=== PATIENT | female | born 1950 | race Two or more races ===

== ENCOUNTER 2024-11-16 18:38 | Emergency (ER) | payer OTHER, SELFPAY ==
[2024-11-16 18:39] VITALS: BMI 22.6
[2024-11-16 18:56] VITALS: BP 163/86; PULSE 88; RESP 18; TEMP 37; O2SAT 99
--- NOTE | 2024-11-16 19:11 | EDRME_ITS ---
Rapid Medical Screening Exam [facility] Arrival date/time: 11/16/24 18:38 73F with history of hypothyroidism, HTN, DM, and hysterectomy last year in [place] due to pelvic organ prolapse presents to ED with 3 days of L-sided ab pain. Patient denies dysuria/hematuria, N/V, and diarrhea. Chief Complaint: Abdominal Pain Vital signs: Vital Signs Temperature 98.6 F 11/16/24 18:56 Pulse Rate 88 11/16/24 18:56 Respiratory Rate 18 11/16/24 18:56 Blood Pressure 163/86 H 11/16/24 18:56 Pulse Oximetry (%) 99 11/16/24 18:56 Oxygen Delivery Method Room Air 11/16/24 18:56
[2024-11-16 19:33] LABS: Collection Type, Urine Clean Catch; Squamous Epithelial Cell,Urine 0 /hpf (0-5); WBC,Urine 0 /hpf (0-5)
[2024-11-16 19:38] LABS: Lactate (Lactic Acid) 1.2 mMol/L (0.4-2.0)
[2024-11-16 19:48] LABS: Basophils % (Auto) 0 % (0-2.5); Eosinophils # (Auto) 0.1 Thou/mm3 (0.0-0.5); Eosinophils % (Auto) 1 % (0-10); Hematocrit 36.5 % (36.0-46.0); Hemoglobin 12.2 g/dL (12.0-16.0); Immature Granulocytes % (Auto) 0 % (0-0); Immature Granulocytes Auto 0.02 Thou/mm3 (0.00-0.00); Lymphocytes # (Auto) 2.8 Thou/mm3 (1.0-4.8); Lymphocytes % (Auto) 33 % (10-50); Mean Corpuscular HGB Conc 33.4 g/dl (31.0-37.0); Mean Corpuscular Hemoglobin 28.3 pg (25.0-35.0); Mean Corpuscular Volume 85 fL (80-100); Monocytes # (Auto) 0.6 Thou/mm3 (0.0-0.8); Monocytes % (Auto) 7 % (0-12); Neutrophils % (Auto) 58 % (37-80); Nucleated Red Blood Cell % 0 /100 WBC (0); Platelet Count 262 Thou/mm3 (140-440); RDW Standard Deviation 41.7 fL (36.4-46.3); Red Blood Count 4.31 Miln/mm3 (4.00-5.20); White Blood Count 8.5 Thou/mm3 (3.6-11.0)
[2024-11-16 19:50] LABS: Bilirubin,Urine Negative (Negative); Blood,Urine Negative (Negative); Clarity,Urine Clear (Clear/Hazy); Color,Urine Colorless (Lt Yel-Yel); Glucose, Urine Negative (Negative); Ketones,Urine Negative (Negative); Leukocyte Esterase,Urine Negative (Negative); Nitrite,Urine Negative (Negative); PH,Urine 6.5 (5.0-7.0); Protein,Urine Negative (Neg - Trace); RBC,Urine < 1 /hpf (0-3); Specific Gravity,Urine 1.008 (1.001-1.035); Urobilinogen,Urine Negative mg/dL (0.0-1.0)
--- NOTE | 2024-11-16 20:05 | EKG_ITS ---
[facility] Test Date: 2024-11-16 Pat Name: ASMITA ROMERO Department: Room: - Gender: Female Hospital Account Manager: : 1950 Requested By: Allan Farley Order Number: [id number] Reading MD: Allan Farley Measurements Intervals [place] Rate: 81 P: 63 NH: 154 QRS: 63 QRSD: 85 T: 78 QT: 352 QTc: 409 Interpretive Statements SINUS RHYTHM Compared to ECG 08/16/2018 11:56:45 No significant changes /store/S0/[id number].pdf
--- NOTE | 2024-11-16 20:06 | XR_ITS ---
Examination: CTA chest, with intravenous contrast. CTA abdomen, with intravenous contrast. CTA pelvis, with intravenous contrast. 2-D sagittal and coronal reconstructions. 3-D reconstructions. Date and time of exam: November 26, 2024 2051 hrs. Indications: Left-sided chest and abdominal pain beginning 4 days ago CTDI vol (mgy) 10.1 DLP (MGycm) 600 Technique: Multiple CTA images, 2.0 mm slice thickness, obtained chest, abdomen, pelvis, with the high-resolution 64 slice scanner. 100 cc Isovue-370 is administered intravenously. Sagittal and coronal 2-D reconstructions are obtained. 3-D reconstructions, angiographic images are obtained. 3-D postprocessing, including vascular maximum intensity projections. Low dose protocols were performed. One or more of the following dose reduction techniques were used; automated exposure control, adjustment of the mA and/or KV according to patient size, use of iterative reconstruction technique. Findings: No thoracic aortic aneurysm dilatation Pulmonary artery segments are not enlarged No pulmonary artery filling defects No paratracheal tracheobronchial or bronchopulmonary adenopathy No pneumonia or pulmonary edema or pleural disease 4 mm pulmonary nodule right midlung 4 mm pulmonary nodule right middle lobe Liver is irregular in contour no focal liver lesions No gallstones Spleen is not enlarged No pancreatic mass No renal or ureteral calculi, no hydronephrosis Aorta normal size No bowel obstruction No pericecal inflammatory change Tiny fat-containing lateral pelvic hernia defect 20 mm, axial image 63 Urinary bladder intact Atrophic uterus No adnexal mass No bladder mass Prominent osteopenia Impression: Small noncalcified pulmonary nodules right lung as above, with this study as baseline recommend 6 month follow-up CT chest without contrast Negative for pulmonary artery emboli No pneumonia or pulmonary edema Primary hepatocellular disease Negative for cholelithiasis No renal or ureteral calculi No CT findings of appendicitis or bowel obstruction Small lateral left pelvic hernia defect
[2024-11-16 20:10] LABS: Alanine Aminotransferase 12 U/L (10-49); Albumin, Serum 4.7 gm/dL (3.4-4.8); Albumin/Globulin Ratio 1.6 (1.2-2.2); Alkaline Phosphatase 78 U/L (46-116); Anion Gap 7 (7-16); Aspartate Amino Transferase 20 U/L (0-34); BUN/Creatinine Ratio 18 Ratio (12-20); Bilirubin,Total 0.3 mg/dL (0.3-1.2); Blood Urea Nitrogen 11 mg/dL (9-23); Calcium 9.6 mg/dL (8.3-10.6); Calcium (Corrected) 9.6 mg/dL (8.5-10.1); Carbon Dioxide 27.7 mMol/L (20.0-31.0); Chloride 106 mMol/L (98-107); Creatinine (Component) 0.6 mg/dL (0.6-1.3); Estimated Creatinine Clearance 64.9 mL/min (>60); Glucose 115 mg/dL (74-106); Lipase 38 U/L (12-53); Osmolality,Calculated 281 (275-295); Potassium 3.8 mMol/L (3.4-5.1); Sodium 141 mMol/L (136-145); Total Protein 7.7 gm/dL (5.7-8.2); eGFR > 60 See Note
[2024-11-16] MEDS: MORPHINE SULF INJ 10 MG/ML VIAL 4 MG IVP (20:20)
[2024-11-16] MEDS: ONDANSETRON INJ 2 MG/ML INJ 2 ML 4 MG IV (20:20)
[2024-11-16] MEDS: SODIUM CHLORIDE 0.9% 1000 ML 1,000 ML 999 ML IV (20:21)
--- NOTE | 2024-11-16 20:28 | PD.EDABDPN ---
ED Abdominal Pain RME/HPI General Chief Complaint: Abdominal Pain Stated complaint: Left abdominal pain to left flank, burining on uri Time seen by provider: 11/16/24 19:33 Arrival date/time: 11/16/24 18:38 RME / HPI RME / HPI narrative: 11/16/24 18:38 73F with history of hypothyroidism, HTN, DM, and hysterectomy last year in [place] due to pelvic organ prolapse presents to ED with 3 days of L-sided ab pain. Patient denies dysuria/hematuria, N/V, and diarrhea. This section includes all my notes and documentations, including HPI, PE, and ED course. Allan Monique MD HPI: 73-year-old female here with several days of pain in the left flank region. Worse with certain movements and positions. No fever or chills. No nausea or vomiting. Eating normally. Had hysterectomy in the past. No urinary symptoms. No other complaints. ROS: All negative except as documented in HPI. Physical Exam: General: Alert and oriented. Appears uncomfortable. Eyes: Conjunctivae and lids clear. ENT: No nasal congestion. Neck: Supple. Heart: RRR. Lungs: No respiratory distress. Good air movement. No rhonchi, wheezing, rales. Chest: Palpation of the left rib cage laterally reproduces her pain. Abdomen: Soft with tenderness in the left flank area. Normal bowel sounds. No distension. No rebound or guarding. Back: No CVA tenderness. Skin: Warm and dry. Neuro: Alert and oriented X 3. I reviewed all diagnostic test results. My interpretation of the EKG is sinus rhythm with no acute ST?T changes. My review of the chest/abdomen/pelvis CT report is no acute findings. Blood tests and urine tests unremarkable. At this point, diagnoses include musculoskeletal chest/abdomen pain. Treatment here included IV fluid and Toradol and morphine and Dilaudid and lidocaine patches. Significant improvement noted. Recommended supportive care. Based on my best medical judgment, made decision no further evaluation or treatment indicated at this time. Patient understands and agrees to the discharge instructions customized and printed, see below. Discharge Instructions from Dr. Monique printed for you: 1. After extensive evaluation, there is no very serious condition. Such as heart attack or blood clots in the lungs or pneumonia or diverticulitis or other serious abdominal condition. 2. Your severe pain is due to tears of small muscle fibers between the ribs and in the abdominal wall. Expect several weeks for complete recovery. 3. Try to resume normal activity. Prolonged inactivity is terrible for your body. 4. Apply ice/heat if helpful. 5. Tylenol with codeine and lidocaine patches as needed. 6. See a private doctor on 11/20/2024 for recheck and further care. To make sure there is no serious intra-abdominal condition, ask for help with more investigation not available here in the ER. Such as EGD or scoping the stomach, colonoscopy or scoping the colon, and referral to see technical services representative. 7. Seek immediate medical care with worsening or with any concerns. Allan Monique MD Related Data Home Medications ?Medication ?Instructions ?Recorded ?Confirmed levothyroxine 75 mcg tablet 75 mcg PO QDAY 04/20/18 01/11/23 lisinopril 10 mg tablet 10 mg PO QDAY 12/12/18 01/11/23 acetaminophen 500 mg tablet 500 mg PO Q8HR PRN Pain 01/11/23 01/11/23 alprazolam 0.5 mg tablet 0.5 mg PO HS 01/11/23 01/11/23 Held on 01/11/23. Instructions: Resume on 01/12/23. atorvastatin 20 mg tablet 20 mg PO DAILY 01/11/23 01/11/23 furosemide 20 mg tablet 20 mg PO DAILY 01/11/23 01/11/23 metformin 500 mg tablet 500 mg PO DAILY 01/11/23 01/11/23 omeprazole 20 mg capsule,delayed 20 mg PO DAILY 01/11/23 01/11/23 release Previous Rx's ?Medication ?Instructions ?Recorded acetaminophen 300 mg-codeine 30 mg 2 tab PO Q8H PRN pain #20 tabs 11/16/24 tablet lidocaine 5 % topical patch 2 patch topical QDAY PRN pain #30 11/16/24 (Lidoderm) ea Allergies Allergy/AdvReac Type Severity Reaction Status Date / Time No Known Allergies Allergy Verified 01/11/23 11:15 Course Quality Measures none Orders Category Date Time Status CT Screening NOW Care 11/16/24 19:10 Completed EKG (ED ONLY) *Do not use* NOW Care 11/16/24 20:05 Completed Insert IV NOW Care 11/16/24 19:[address] angio chest abdomen pelvis Stat Exams 11/16/24 20:06 Completed EKG (ED Only) Stat Exams 11/16/24 20:05 Draft Amylase Stat Lab 11/16/24 20:20 Completed BNP [B-Type Natriuretic Peptide] Stat Lab 11/16/24 20:20 Completed CBC Stat Lab 11/16/24 19:20 Completed CMP [Comprehensive Metabolic Panel] Stat Lab 11/16/24 19:20 Completed D-Dimer Stat Lab 11/16/24 20:20 Completed Lactate (Lactic Acid) Stat Lab 11/16/24 19:20 Completed Lipase Stat Lab 11/16/24 19:20 Completed Magnesium Stat Lab 11/16/24 20:20 Completed TSH [Thyroid Stimulating Hormone] Stat Lab 11/16/24 20:20 Completed Troponin I Stat Lab 11/16/24 20:20 Completed UA [Urinalysis] Stat Lab 11/16/24 19:05 Completed HYDROmorphone INJ [Dilaudid Inj] Med 11/16/24 21:33 Discontinued 0.5 mg IVP X1 ONE Ketorolac Inj [Toradol Inj] Med 11/16/24 21:33 Discontinued 15 mg IVP X1 ONE Lidocaine 5% Patch Med 11/16/24 21:50 Discontinued 2 patch TOP X1 ONE Morphine Inj Med 11/16/24 20:04 Discontinued 4 mg IVP X1 ONE Ondansetron Inj [Zofran Inj] Med 11/16/24 20:04 Discontinued 4 mg IV X1 ONE Sodium Chloride 0.9% 1000 ml [Ns] 1,000 ml Med 11/16/24 20:04 Discontinued IV 999 mls/hr Vital Signs Vital signs: Vital Signs Temperature 98.6 F 11/16/24 18:56 Pulse Rate 88 11/16/24 18:56 Respiratory Rate 18 11/16/24 18:56 Blood Pressure 163/86 H 11/16/24 18:56 Pulse Oximetry (%) 99 11/16/24 18:56 Oxygen Delivery Method Room Air 11/16/24 18:56 Abdominal Pain MDM Patient data External records reviewed:: [facility] previous records Clinical information provided by:: patient and family Social determinants that could affect healthcare access:: none Patient has the following chronic illnesses:: Asthma and HTN and hyperlipidemia How is presenting disease/condition affected by chronic disease/condition?: uneffected by Evaluation data The following diagnostics were reviewed and interpreted by me:: lab results, radiology exam(s) and EKG tracing(s) (My interpretation of the EKG: NSR (81 bpm) with no ST-T changes. Allan Monique MD) Lab and/or radiology exams considered but not ordered:: None Interpretation Summary: Normal diagnostics Medications / Prescriptions Medications or Prescriptions considered but not ordered:: None Medication administrations:: Medication Administration History Discontinued Medications Hydromorphone HCl (Hydromorphone Inj 2 Mg/Ml Vial) 0.5 mg IVP X1 ONE Stop: 11/16/24 21:34 Last Admin: 11/16/24 22:07 Dose: Not Given Documented By: ARETHA Non-Admin Reason: Patient Refused Sodium Chloride (Ns) 1,000 mls @ 999 mls/hr IV .Q1H1M ONE Stop: 11/16/24 21:04 Last Infusion: 11/16/24 22:23 Dose: Infused Documented By: Admin: 11/16/24 20:21 Dose: 999 mls/hr Documented By: LINUS Ketorolac Tromethamine (Ketorolac Inj 30 Mg/Ml Vial) 15 mg IVP X1 ONE Stop: 11/16/24 21:34 Last Admin: 11/16/24 21:37 Dose: 15 mg Documented By: LINUS Lidocaine (Lidocaine 5% 1 Patch) 2 patch TOP X1 ONE Stop: 11/16/24 21:51 Last Admin: 11/16/24 22:10 Dose: 2 patch Documented By: ARETHA Morphine Sulfate (Morphine Sulf Inj 10 Mg/Ml Vial) 4 mg IVP X1 ONE Stop: 11/16/24 20:05 Last Admin: 11/16/24 20:20 Dose: 4 mg Documented By: LINUS Ondansetron HCl (Ondansetron Inj 2 Mg/Ml Inj 2 Ml) 4 mg IV X1 ONE; Protocol Stop: 11/16/24 20:05 Last Admin: 11/16/24 20:20 Dose: 4 mg Documented By: LINUS IV fluid and Zofran and Toradol and morphine and Dilaudid and lidocaine patches Consultations Consultation(s) initiated? (list below): No Diagnosis Differential diagnosis abdominal pain: acute appendicitis, calculus of kidney, constipation, diverticulitis, small bowel obstruction and other (RI, PE, musculoskeletal pain) Most likely diagnosis given after review of the tests above:: Musculoskeletal chest/abdominal pain Admission Indicated Admission indicated?: not indicated Explain why admission is indicated or not indicated:: There is no indication for admission after normal diagnostics. Admission Request Was there a request for admission?: No Disposition Plan Disposition Plan: Discharge Discharge Attestation Discharge Attestation: The patient and all family members were given an opportunity to ask questions and understood the discharge instructions. Discharge instructions specifically effects, indications for sooner follow up or return to the emergency department, and the expected course of current diagnosis. Patient condition: Stable Discharge Plan Plan Patient Disposition: HOME (Self Care) Prescriptions/Referrals Prescriptions/Med Rec: New acetaminophen-codeine 300-30 mg tablet 2 tab PO Q8H MDD 6 PRN (Reason: pain) Qty: 20 0RF lidocaine [Lidoderm] 5 % adhesive patch,medicated 2 patch topical QDAY PRN (Reason: pain) Qty: 30 0RF Rx Instructions: leave on most painful area for up to 12 hrs No Action levothyroxine 75 mcg Tablet 75 mcg PO QDAY lisinopril 10 mg Tablet 10 mg PO QDAY metformin 500 mg tablet 500 mg PO DAILY Patient Comments: TAKE ONE TABLET poi EVERY DAY atorvastatin 20 mg tablet 20 mg PO DAILY acetaminophen 500 mg tablet 500 mg PO Q8HR PRN (Reason: Pain) Patient Comments: TAKE ONE TABLET BY MOUTH EVERY 8-12 HOURS NEEDED NO MORE THAN EIGHT TABLETS PER 24hrs alprazolam 0.5 mg tablet 0.5 mg PO HS omeprazole 20 mg capsule,delayed release(DR/EC) 20 mg PO DAILY furosemide 20 mg tablet 20 mg PO DAILY Referrals: No Primary/Family,Physician [Primary Care Provider] - In 1 week Problem List Clinical Impression: Chest wall pain, Abdominal wall pain Patient/Caregiver Discharge Instructions Discharge Activity: activity as tolerated Education Materials: ED Muscle Strain, Abdomen Additional Instructions: Discharge Instructions from Dr. Monique printed for you: 1. After extensive evaluation, there is no very serious condition. Such as heart attack or blood clots in the lungs or pneumonia or diverticulitis or other serious abdominal condition. 2. Your severe pain is due to tears of small muscle fibers between the ribs and in the abdominal wall. Expect several weeks for complete recovery. 3. Try to resume normal activity. Prolonged inactivity is terrible for your body. 4. Apply ice/heat if helpful. 5. Tylenol with codeine and lidocaine patches as needed. 6. See a private doctor on 11/20/2024 for recheck and further care. To make sure there is no serious intra-abdominal condition, ask for help with more investigation not available here in the ER. Such as EGD or scoping the stomach, colonoscopy or scoping the colon, and referral to see technical services representative. 7. Seek immediate medical care with worsening or with any concerns. Print Language: Persian Stand Alone Forms: Laura Award Info., Patient Portal Info Letter
[2024-11-16 20:44] VITALS: BP 156/85; PULSE 74; RESP 17; TEMP 37.1; O2SAT 100
[2024-11-16 20:48] LABS: B-Type Natriuretic Peptide 36 pg/mL (0-100)
[2024-11-16 20:55] LABS: D-Dimer 342 ng/mL (<600)
[2024-11-16 21:05] LABS: Magnesium 1.9 mg/dL (1.6-2.6); Thyroid Stimulating Hormone 5.37 uIU/mL (0.55-4.78); Troponin I < 0.020 ng/mL (0.0-0.045)
--- NOTE | 2024-11-16 21:32 | PC.NURSE ---
DR. HENNING NOTIFIED OF PAIN 04/22, NO ORDERS RECEIVED AT THIS TIME.
[2024-11-16] MEDS: KETOROLAC INJ 30 MG/ML VIAL 15 MG IVP (21:37)
[2024-11-16] MEDS: LIDOCAINE 5% 1 PATCH 2 PATCH TOP (22:10)
[2024-11-16 22:15] VITALS: BP 142/75; PULSE 78; RESP 17; O2SAT 97
[2024-11-16 22:29] LABS: Amylase 52 U/L (30-118)
== END 2024-11-16 22:25 | disposition home or self-care (01) ==
PROVIDERS: Physician Assistant; Emergency Provider Emergency Medicine
DX: R10.9 Unspecified abdominal pain (principal); R07.89 Other chest pain; I10 Essential (primary) hypertension
CPT/HCPCS: 36415; 71275; 74174; 80053; 81001; 82150; 83605; 83690; 83735; 83880; 84443; 84484; 85025; 85379; 93005; 96361; 96374; 96375; 99285; A4649; J1885; J2270; J2405; J3490; J7030; Q9967

== ENCOUNTER 2024-12-26 14:33 | Observation (INO) | payer OTHER, SELFPAY ==
[2024-12-26 14:36] VITALS: BP 158/84; PULSE 86; RESP 18; TEMP 36.6; O2SAT 98; BMI 24.8
--- NOTE | 2024-12-26 14:50 | PD.EDFALL ---
ED Fall Injury RME/HPI General Chief Complaint: Fall Stated Complaint: FALL Time Seen by Provider: 12/26/24 15:04 Arrival date/time: 12/26/24 14:33 RME / HPI RME / HPI Narrative: DR. PATTERSON MAIN ED EVALUATION: 74 year old female presents to the Emergency Department [facility] with complaint of unwitnessed fall 20 minutes prior to arrival. After the fall, patient has a headache, chest pain, and right knee pain. She states she tripped and fell, there was a hole on the ground. However, now she reports some dizziness. She also reports she has not been taking her blood thinners, unknown time. PMHx: Asthma, hypertension, and metal rods in her posterior neck from previous surgery. Vaginal repair surgery 6-8 months ago. Social Hx: No tobacco, alcohol, or substance use. Related Data Home Medications ?Medication ?Instructions ?Recorded ?Confirmed levothyroxine 75 mcg tablet 75 mcg PO QDAY 04/20/18 01/11/23 lisinopril 10 mg tablet 10 mg PO QDAY 12/12/18 01/11/23 acetaminophen 500 mg tablet 500 mg PO Q8HR PRN Pain 01/11/23 01/11/23 alprazolam 0.5 mg tablet 0.5 mg PO HS 01/11/23 01/11/23 Held on 01/11/23. Instructions: Resume on 01/12/23. atorvastatin 20 mg tablet 20 mg PO DAILY 01/11/23 01/11/23 furosemide 20 mg tablet 20 mg PO DAILY 01/11/23 01/11/23 metformin 500 mg tablet 500 mg PO DAILY 01/11/23 01/11/23 omeprazole 20 mg capsule,delayed 20 mg PO DAILY 01/11/23 01/11/23 release Previous Rx's ?Medication ?Instructions ?Recorded acetaminophen 300 mg-codeine 30 mg 2 tab PO Q8H PRN pain #20 tabs 11/16/24 tablet lidocaine 5 % topical patch 2 patch topical QDAY PRN pain #30 11/16/24 (Lidoderm) ea Allergies Allergy/AdvReac Type Severity Reaction Status Date / Time No Known Allergies Allergy Verified 01/11/23 11:15 Review of Systems Review of Systems Systems Reviewed: All systems reviewed, normal except as documented Past Medical History Past Medical History NEUROLOGIC: Positive Head Trauma (14 YRS OLD FELL ON A ROCK NO ER VISIT, 2007 ER VISIT [facility]OSP FOR 5) CARDIAC: Positive Cardiac Disorders, Hypercholesterolemia and Hypertension RESPIRATORY: Positive Asthma GASTROINTESTINAL: Positive Gastrointestinal Disorders and Gastroesophageal Reflux Disease REPRODUCTIVE: Positive Previous Pregnancies MUSCULOSKELETAL: Positive Musculoskeletal Disorders, Arthritis and Degenerative Disk Disease ENT: Positive Head Trauma (14 YRS OLD FELL ON A ROCK NO ER VISIT, 2007 ER VISIT HOSP FOR 5) ENDOCRINE: Positive Endocrine Disorders, Diabetes Mellitus Type 2 and Hypothyroidism Social History SMOKING STATUS: Never smoker SUBSTANCE USE: does not use ALCOHOL: Never ED Exam Narrative Physical exam: Physical Exam: General: The vital signs were reviewed. The patient is non-toxic, in no apparent distress and appears healthy with a patent airway, no respiratory distress and has no apparent circulatory problems. Head & Scalp: Normocephalic, atraumatic. Face: Appears normal and is without lesions, deformity. Ears: Left external pinna appears normal. Right external pinna appears normal. Eyes: The sclera is anicteric. No obvious photophobia. The Left and Right Orbit/Lid/Conjunctiva appears normal without swelling, discoloration or injection. Nose: The nose is without deformity, discharge or tenderness; Throat: Appears normal. The mucous membranes are pink and moist without exudates, redness or mass seen. The tongue appears normal. Neck: The neck is supple and no apparent mass or adenopathy. Chest: The chest wall is normal in size and symmetry and has no chest wall tenderness or crepitus. The patient displays normal ventilator effort without retractions, accessory muscle use and has adequate air movement bilaterally with no wheezes and no rales. Cardiovascular: Regular rate and rhythm; No murmurs, rubs, or gallops; Gastrointestinal: The abdomen appears normal. No obvious hernias or mass. The abdomen is soft and benign, non-distended, with no pain, no guarding and no rebound tenderness. Bowel sounds are present and normal sounding. No CVA tenderness. Genitourinary: Back/Spine: Patient appears to have tenderness Extremities/Musculoskeletal/lymphatic: The bilateral upper and lower extremities are warm. There is no evidence of arterial insufficiency. There is no evidence of venous insufficiency/edema. The right knee has obvious swelling and hemarthrosis or effusion and patient is unable to flex or bend the knee with tremendous pain on simple palpation anteriorly. Distally the tib-fib ankle and foot grossly appear normal there is no obvious injury. The left leg has some pain and discomfort in the pelvic and hip area but moves the joint fairly well. The patient spontaneously moves bilateral upper and left lower extremities with no pain and no limitation of movement. There is no apparent, injury or trauma. Skin: The skin is warm, dry and intact. No rashes. No petechia. No purpura. No abnormal bruising. The color is appropriate with no cyanosis. Mental status/Psychiatric: Mental status is appropriate for age. The patient has no apparent delusions, visual hallucinations, no apparent audible hallucinations. The patient has no apparent suicidal thoughts/ideation and no apparent homicidal thoughts/ideation. Neurological: The patient is awake, alert, interactive, cordial, cooperative and is oriented to name and situation. The patient follows commands and answers historical question with no impairment. There is no visual disturbance apparent. The pupils are equal and reactive bilaterally with normal eye movements and no diplopia The bilateral upper and lower extremities have normal strength, normal range of motion and normal functioning. The gait, station and balance were not tested due to acuity. Course Quality Measures none Orders Category Date Time Status Bedside Blood Glucose NOW Care 12/26/24 15:[address] Screening NOW Care 12/26/24 15:33 Active EKG (ED ONLY) *Do not use* NOW Care 12/26/24 15:[address] cervical spine wo con Stat Exams 12/26/24 15:[address] chest abdomen pelvis w Stat Exams 12/26/24 15:[address] head/brain wo con Stat Exams 12/26/24 15:04 Completed EKG (ED Only) Stat Exams 12/26/24 15:04 Draft XR chest 1V portable Stat Exams 12/26/24 15:04 Completed XR hip BI w pelvis 3-4V Stat Exams 12/26/24 15:56 Completed XR knee RT 3V Stat Exams 12/26/24 15:32 Completed Alcohol, Blood Medical Stat Lab 12/26/24 15:44 Completed Ammonia Stat Lab 12/26/24 15:44 Completed B-Type Natriuretic Peptide Stat Lab 12/26/24 15:44 Completed Blood Culture (Lab) Stat Lab 12/26/24 15:44 Received CBC Stat Lab 12/26/24 15:44 Completed Comprehensive Metabolic Panel Stat Lab 12/26/24 15:44 Completed Drug Screen,Urine Stat Lab 12/26/24 17:26 Received Lactate (Lactic Acid) Stat Lab 12/26/24 15:44 Completed Procalcitonin Stat Lab 12/26/24 15:44 Completed Prothrombin Time with INR Stat Lab 12/26/24 15:44 Completed Troponin I Stat Lab 12/26/24 15:44 Completed Type and Screen Stat Lab 12/26/24 15:44 Completed Urinalysis Stat Lab 12/26/24 17:26 Received Urinalysis, C/S if Indicated Stat Lab 12/26/24 17:26 Received Venous Blood Gas Stat Lab 12/26/24 15:44 Completed Morphine Inj Med 12/26/24 15:32 Discontinued 5 mg IVP X1 ONE Ondansetron Inj [Zofran Inj] Med 12/26/24 15:32 Discontinued 4 mg IV X1 ONE Vital Signs Vital signs: Vital Signs Temperature 98 F 12/26/24 14:36 Pulse Rate 86 12/26/24 14:36 Respiratory Rate 18 12/26/24 14:36 Blood Pressure 158/84 H 12/26/24 14:36 Pulse Oximetry (%) 98 12/26/24 14:36 Oxygen Delivery Method Room Air 12/26/24 14:36 Fall MDM Narrative MDM Narrative:: I, Ness Alvarado am scribing for and in the presence of Dr. Patterson. The patient tripped and fell on a hole in the ground hitting her head with a hematoma to the left frontal area and complains of pain to the bilateral thorax and anteriorly and laterally complains of truncal pain pelvic pain leg pain including hips and pelvis. Laboratory studies reveal UA and urine drug screen pending at 1810 hrs. CBC with a white count of 8.0 hemoglobin [place] 0.0 PT/INR within normal limits venous blood gas pH is 7.45 pCO2 of 38 sodium 141 potassium 3.5 chloride 109 BUN 9 creatinine 0.5 lactic acid 1.1 transaminases bilirubin are normal ammonia level is normal procalcitonin is negative. Lactic acid is 1.1 sensibly laboratory studies are unremarkable Pelvic and hip x-rays reveal no fracture. X-ray of the right knee reveals a comminuted patellar fracture the knee itself appears to be an fracture there is no dislocation no foreign body seen. CT of the cervical spine came back negative for any fracture. CT of the head came back negative for any intracranial injury or bleed. Chest x-ray came back negative for any infiltrate no consolidation or pneumonia normal heart. CT of the chest abdomen pelvis is still pending at 1808 hrs. and this patient be signed out to Dr. Monique to follow that up. Because of the patella fracture will need a knee immobilizer. Dr. Monique will follow-up on the urinalysis and evaluate this patient for comfort and see if she is safe to go home or need to be admitted for intractable pain. He also follow-up on the CT of the chest abdomen pelvis. Patient data External records reviewed:: EMS form Clinical information provided by:: patient and EMS Social determinants that could affect healthcare access:: none Patient has the following chronic illnesses:: Asthma, hypertension, and metal rods in her posterior neck from previous surgery. Vaginal repair surgery 6-8 months ago. How is presenting disease/condition affected by chronic disease/condition?: uneffected by Evaluation data The following diagnostics were reviewed and interpreted by me:: lab results, radiology exam(s) and EKG tracing(s) (EKG#1: EKG at 1530 hours. Interpreted by me: sinus rhythm, rate 71, no STEMI) Lab and/or radiology exams considered but not ordered:: none Interpretation Summary: Procedure(s): CT head/brain wo con Accession Number(s): [id number] cc: Elijah Patterson MD; Roosevelt Jorgensen MD~ Examination: CT brain head without contrast. 2-D sagittal coronal reconstructions Date and time of exam:December 26, 2024 at 1512 hours INDICATIONS: Loss of consciousness episode today COMPARISON: March 25, 2022 CTDI: vol (mGy):46 DLP: (mGycm):1020 Technique: Multiple CT axial sections of the brain have been obtained, 5 mm slice thickness. Contrast has not been administered. 2-D sagittal, coronal reconstructions have been obtained Low dose protocols were performed. One or more of the following dose reduction techniques were used; automated exposure control, adjustment of the mA and/or KV according to patient size, use of iterative reconstruction technique. Findings: No significant ventricular enlargement. Intra-axial or extra-axial hemorrhage density is not seen. No mass effect or midline shift Basal cisterns are not remarkable. Fourth ventricle is midline. Cranial vault intact. Impression: Negative for acute hemorrhage, mass effect or midline shift Advise clinical correlation follow-up accordingly Dictated By: Roosevelt Jorgensen MD Procedure(s): XR hip BI w pelvis 3-4V Accession Number(s): [id number] cc: Michael Clay; Elijah Patterson MD; Roosevelt Jorgensen MD~ Examination: Bilateral hips, AP pelvis, 5 views Technique: AP, lateral views both hips, AP pelvis, 5 views Exam date and time: December 26, 2024 1602 hrs. Indications: Patient fell today with injury to both hips, bilateral hip pain. Findings: Prominent osteopenia Mild to moderate bilateral hip osteoarthritis No right or left hip fracture or hip dislocation Bones of the pelvis intact Impression: No acute hip or pelvic fracture Dictated By: Roosevelt Jorgensen MD Procedure(s): XR knee RT 3V Accession Number(s): [id number] cc: Michael Clay; Elijah Patterson MD; Roosevelt Jorgensen MD~ Examination: Knee, right , 3 views Technique: Knee AP, lateral, oblique 3 views Date and time of exam: December 26, 2024 1604 hrs. Indications: Patient fell today with into the right knee, right knee pain. Findings: Prominent osteopenia Acute fracture traversing the mid to upper patella anterior to posterior without major offset Extensive blood in the joint space Impression: Acute comminuted patellar fracture Dictated By: Roosevelt Jorgensen MD Procedure(s): XR chest 1V portable Accession Number(s): [id number] cc: Michael Clay; Elijah Patterson MD; Roosevelt Jorgensen MD~ Examination: AP chest single view Technique one AP portable upright chest single view Exam date and time: December 26, 2024 1609 hrs. Comparison 05/16/2024 Indications: Chest pain shortness of breath beginning 2 days ago. Findings: Minimal prominence left ventricle No pneumonia or pulmonary edema Prominent osteopenia Lower cervical plate Impression: No pneumonia or pulmonary edema Dictated By: Roosevelt Jorgensen MD Medications / Prescriptions Medications or Prescriptions considered but not ordered:: none Medication administrations:: Medication Administration History Discontinued Medications Morphine Sulfate (Morphine Sulf Inj 10 Mg/Ml Vial) 5 mg IVP X1 ONE Stop: 12/26/24 15:33 Last Admin: 12/26/24 15:41 Dose: 5 mg Documented By: ER Ondansetron HCl (Ondansetron Inj 2 Mg/Ml Inj 2 Ml) 4 mg IV X1 ONE; Protocol Stop: 12/26/24 15:33 Last Admin: 12/26/24 15:41 Dose: 4 mg Documented By: ER see above Consultations Consultation(s) initiated? (list below): No Diagnosis Fall Differential Diagnosis: concussion without loss of consciousness and other (right knee fracture, head injury) Most likely diagnosis given after review of the tests above:: No official diagnoses at this time, still pending diagnostic tests. Patient signout to the overnight associate provider. Admission Indicated Admission indicated?: not indicated Admission Request Was there a request for admission?: No Disposition Plan Disposition Plan: other (specify) (Patient signout to the overnight associate provider, pending cervical CT, chest/abdomen/pelvis CT, and final disposition.) Discharge Plan Prescriptions/Referrals Prescriptions/Med Rec: No Action levothyroxine 75 mcg Tablet 75 mcg PO QDAY lisinopril 10 mg Tablet 10 mg PO QDAY acetaminophen-codeine 300-30 mg tablet 2 tab PO Q8H MDD 6 PRN (Reason: pain) Qty: 20 0RF lidocaine [Lidoderm] 5 % adhesive patch,medicated 2 patch topical QDAY PRN (Reason: pain) Qty: 30 0RF Rx Instructions: leave on most painful area for up to 12 hrs metformin 500 mg tablet 500 mg PO DAILY Patient Comments: TAKE ONE TABLET poi EVERY DAY atorvastatin 20 mg tablet 20 mg PO DAILY acetaminophen 500 mg tablet 500 mg PO Q8HR PRN (Reason: Pain) Patient Comments: TAKE ONE TABLET BY MOUTH EVERY 8-12 HOURS NEEDED NO MORE THAN EIGHT TABLETS PER 24hrs alprazolam 0.5 mg tablet 0.5 mg PO HS omeprazole 20 mg capsule,delayed release(DR/EC) 20 mg PO DAILY furosemide 20 mg tablet 20 mg PO DAILY Referrals: Michael Louis [Primary Care Provider] - In 1 week Problem List Clinical Impression: Accidental fall, Contusion of head, Chest wall contusion, Bilateral hip pain, Closed fracture of right patella Patient/Caregiver Discharge Instructions Print Language: Bahamian
[2024-12-26 14:59] VITALS: BP 143/101; RESP 18; TEMP 36.6; O2SAT 98
[2024-12-26 15:03] VITALS: PULSE 93; RESP 13; O2SAT 100
--- NOTE | 2024-12-26 15:04 | XR_ITS ---
Examination: CT brain head without contrast. 2-D sagittal coronal reconstructions Date and time of exam:December 26, 2024 at 1512 hours INDICATIONS: Loss of consciousness episode today COMPARISON: March 25, 2022 CTDI: vol (mGy):46 DLP: (mGycm):1020 Technique: Multiple CT axial sections of the brain have been obtained, 5 mm slice thickness. Contrast has not been administered. 2-D sagittal, coronal reconstructions have been obtained Low dose protocols were performed. One or more of the following dose reduction techniques were used; automated exposure control, adjustment of the mA and/or KV according to patient size, use of iterative reconstruction technique. Findings: No significant ventricular enlargement. Intra-axial or extra-axial hemorrhage density is not seen. No mass effect or midline shift Basal cisterns are not remarkable. Fourth ventricle is midline. Cranial vault intact. Impression: Negative for acute hemorrhage, mass effect or midline shift Advise clinical correlation follow-up accordingly
--- NOTE | 2024-12-26 15:04 | EKG_ITS ---
[facility] Test Date: 2024-12-26 Pat Name: ASMITA ROMERO Department: Room: - Gender: Female Pbx Manager: : 1950 Requested By: Elijah Oropeza Order Number: [id number] Reading MD: Elijah Oropeza Measurements Intervals Drain Rate: 71 P: 63 ID: [id number] QRS: 64 QRSD: 95 T: 67 QT: 381 QTc: 414 Interpretive Statements SINUS RHYTHM Compared to ECG 11/16/2024 20:22:59 No significant changes /store/S0/[id number].pdf
--- NOTE | 2024-12-26 15:04 | XR_ITS ---
Examination: AP chest single view Technique one AP portable upright chest single view Exam date and time: December 26, 2024 1609 hrs. Comparison 05/16/2024 Indications: Chest pain shortness of breath beginning 2 days ago. Findings: Minimal prominence left ventricle No pneumonia or pulmonary edema Prominent osteopenia Lower cervical plate Impression: No pneumonia or pulmonary edema
--- NOTE | 2024-12-26 15:32 | XR_ITS ---
Examination: Knee, right , 3 views Technique: Knee AP, lateral, oblique 3 views Date and time of exam: December 26, 2024 1604 hrs. Indications: Patient fell today with into the right knee, right knee pain. Findings: Prominent osteopenia Acute fracture traversing the mid to upper patella anterior to posterior without major offset Extensive blood in the joint space Impression: Acute comminuted patellar fracture
--- NOTE | 2024-12-26 15:32 | XR_ITS ---
Examination: CT chest with intravenous contrast CT abdomen with intravenous contrast CT pelvis with intravenous contrast 2-D coronal and sagittal reconstructions Time of exam: December 26, 2024 at 1735 hrs. Indications: Injury to the chest and abdomen today, chest pain abdomen pain CTDI: vol (mGy) : 03/02/2025 DLP: (mGycm): 360 Technique: Multiple axial images of the chest, abdomen and pelvis with intravenous contrast, 3.0 mm slice thickness. Images obtained post intravenous injection Isovue 370 60 cc. 2-D sagittal and coronal reconstructions. Low dose protocols were performed. One or more of the following dose reduction techniques were used; automated exposure control, adjustment of the mA and/or KV according to patient size, use of iterative reconstruction technique. Findings: Thoracic aorta pulmonary arteries appear intact No hemopericardium, pneumothorax, pulmonary contusion or hemothorax The manubrium, the body the sternum intact. Prominent osteopenia Chronic osteoporotic compression T7 No acute thoracic or lumbar or sacral fracture Suspicious for acute fractures nondisplaced right fifth, sixth, seventh ribs No liver splenic or renal laceration No perinephric hematoma Intact gallbladder Aorta intact No free blood in the abdomen Negative for pneumoperitoneum Urinary bladder intact Hips bones of the pelvis intact Impression: Suspicious for nondisplaced acute fractures right fifth, sixth, seventh ribs anteriorly, the appearance should be clinically correlated Thoracic aorta pulmonary arteries intact No hemopericardium, pneumothorax, pulmonary contusion or hemothorax No abdominal parenchymal laceration Abdominal aorta intact No free blood in the abdomen
--- NOTE | 2024-12-26 15:32 | XR_ITS ---
Examination: CT cervical spine without contrast 2-D sagittal reconstructions 2-D coronal reconstructions 3-D reconstructions. Exam date and time:December 26, 2024 1734 hrs. Indications: Injury to the neck today, neck pain CTDI:vol (mGy) 13.0 DLP: (mGycm) 268 Technique: Multiple 2 mm axial sections of the cervical spine have been obtained. The coronal and sagittal reconstructions have been obtained. 3-D reconstructions have been obtained. Low dose protocols were performed. One or more of the following dose reduction techniques were used; automated exposure control, adjustment of the mA and/or KV according to patient size, use of iterative reconstruction technique. Findings: Axial sections demonstrate intact base of the skull. C1 exhibit satisfactory relationship to the odontoid. No acute cervical vertebral body fracture seen. Alignment posterior spinous processes satisfactory. Cervical fusion C3-C6 with anatomic alignment Impression: No acute cervical fracture.
[2024-12-26] MEDS: MORPHINE SULF INJ 10 MG/ML VIAL 5 MG IVP ×2 (15:41→18:17)
[2024-12-26] MEDS: ONDANSETRON INJ 2 MG/ML INJ 2 ML 4 MG IV ×2 (15:41→21:17)
--- NOTE | 2024-12-26 15:56 | XR_ITS ---
Examination: Bilateral hips, AP pelvis, 5 views Technique: AP, lateral views both hips, AP pelvis, 5 views Exam date and time: December 26, 2024 1602 hrs. Indications: Patient fell today with injury to both hips, bilateral hip pain. Findings: Prominent osteopenia Mild to moderate bilateral hip osteoarthritis No right or left hip fracture or hip dislocation Bones of the pelvis intact Impression: No acute hip or pelvic fracture
[2024-12-26 16:03] LABS: Base Excess, Venous 2 (-3-3); Lactate (Lactic Acid) 1.1 mMol/L (0.4-2.0); O2 Saturation, Venous 78 % (96-97); PCO2, Venous 38 mmHg (36-56); PO2, Venous 38 mmHg (15-58); pH, Venous 7.45 (7.33-7.66)
[2024-12-26 16:04] LABS: Basophils % (Auto) 0 % (0-2.5); Eosinophils # (Auto) 0.1 Thou/mm3 (0.0-0.5); Eosinophils % (Auto) 1 % (0-10); Hematocrit 32.7 % (36.0-46.0); Immature Granulocytes % (Auto) 1 % (0-0); Immature Granulocytes Auto 0.04 Thou/mm3 (0.00-0.00); Lymphocytes # (Auto) 1.5 Thou/mm3 (1.0-4.8); Lymphocytes % (Auto) 19 % (10-50); Mean Corpuscular HGB Conc 33.6 g/dl (31.0-37.0); Mean Corpuscular Hemoglobin 28.4 pg (25.0-35.0); Mean Corpuscular Volume 84 fL (80-100); Monocytes # (Auto) 0.5 Thou/mm3 (0.0-0.8); Monocytes % (Auto) 7 % (0-12); Neutrophils # (Auto) 5.8 Thou/mm3 (1.8-7.7); Neutrophils % (Auto) 73 % (37-80); Nucleated Red Blood Cell % 0 /100 WBC (0); Platelet Count 250 Thou/mm3 (140-440); RDW Standard Deviation 41.7 fL (36.4-46.3); Red Blood Count 3.88 Miln/mm3 (4.00-5.20)
[2024-12-26 16:20] LABS: Prothrombin Time 11.3 Seconds (9.0-12.2)
[2024-12-26 16:21] LABS: Ammonia < 10 uMol/L (11-32)
[2024-12-26 16:28] LABS: B-Type Natriuretic Peptide 42 pg/mL (0-100)
[2024-12-26 16:39] LABS: Alanine Aminotransferase 8 U/L (10-49); Albumin, Serum 4.2 gm/dL (3.4-4.8); Albumin/Globulin Ratio 1.6 (1.2-2.2); Alcohol, Blood Medical < 3.0 mg/dL (0-10.0); Alkaline Phosphatase 80 U/L (46-116); Anion Gap 7 (7-16); Aspartate Amino Transferase 16 U/L (0-34); BUN/Creatinine Ratio 18 Ratio (12-20); Bilirubin,Total 0.6 mg/dL (0.3-1.2); Blood Urea Nitrogen 9 mg/dL (9-23); Calcium 8.9 mg/dL (8.3-10.6); Calcium (Corrected) 8.9 mg/dL (8.5-10.1); Carbon Dioxide 24.8 mMol/L (20.0-31.0); Chloride 109 mMol/L (98-107); Creatinine (Component) 0.5 mg/dL (0.6-1.3); Estimated Creatinine Clearance 87.9 mL/min (>60); Globulin 2.6 gm/dL (2.3-3.5); Glucose 100 mg/dL (74-106); Osmolality,Calculated 279 (275-295); Potassium 3.5 mMol/L (3.4-5.1); Procalcitonin < 0.04 ng/ml (0.0-0.49); Sodium 141 mMol/L (136-145); Total Protein 6.8 gm/dL (5.7-8.2); Troponin I < 0.020 ng/mL (0.0-0.045); eGFR > 60 See Note
[2024-12-26 17:39] LABS: Collection Type, Urine Clean Catch
[2024-12-26 17:56] LABS: Bilirubin,Urine Negative (Negative); Blood,Urine Negative (Negative); Clarity,Urine Clear (Clear/Hazy); Color,Urine Lt-Yellow (Lt Yel-Yel); Culture Indicated,Urine Not Indicated; Glucose, Urine Negative (Negative); Ketones,Urine Negative (Negative); Leukocyte Esterase,Urine Positive (Negative); Nitrite,Urine Negative (Negative); Protein,Urine Negative (Neg - Trace); RBC,Urine 2 /hpf (0-3); Specific Gravity,Urine 1.012 (1.001-1.035); Squamous Epithelial Cell,Urine < 1 /hpf (0-5); Urobilinogen,Urine Negative mg/dL (0.0-1.0); WBC,Urine 4 /hpf (0-5)
[2024-12-26 18:05] LABS: Amphetamine/Methamp Scrn,U Negative (Negative); Barbiturate Screen,Urine Negative (Negative); Benzodiazepines Screen,Urine Positive (Negative); Benzoylecgonine Screen, Ur Negative (Negative); Fentanyl Screen,Urine Negative (Negative); Opiate Screen,Urine Positive (Negative); THC Screen,Urine Negative (Negative)
[2024-12-26 18:07] VITALS: BP 130/64; PULSE 68; RESP 15; TEMP 36.6; O2SAT 99
--- NOTE | 2024-12-26 18:38 | PD.EDADDENDU ---
Emergency Room Addendum Addendum Narrative: Dr Summers was called per Dr. Cavazos's request and he is aware and asked that Dr Vallejo call if he needs anything done concerning chest tubes or management of rib fractures.
--- NOTE | 2024-12-26 18:46 | XR_ITS ---
Examination: Shoulder,left, 3 views Technique: Shoulder AP internal rotation, AP external rotation, Y view shoulder, 3 views Exam date and time :December 26, 2024 1907 hrs. Indications: Patient fell today with injury to the shoulder, shoulder pain Findings: Severe osteopenia No shoulder fracture or dislocation No AC joint separation Impression: No shoulder fracture or dislocation
[2024-12-26 19:18] VITALS: BP 123/63; PULSE 65; RESP 16; TEMP 36.8; O2SAT 99
--- NOTE | 2024-12-26 20:46 | PD.RESHP ---
Documentation for date of: 12/26/24 HPI History of Present Illness Chief complaint: right knee pain History of present illness: The patient is a 74-year-old female with a previous medical history of hypertension, hyperlipidemia, type 2 diabetes, hypothyroidism, asthma, GERD, chronic back and neck pain, right-sided rotator cuff injury status postrepair who was brought in by ambulance after she fell on the street. She was coming back from a doctor's appointment where she got the flu shot and she tripped over the piece of concrete. She hit her face and her body, denies feeling dizzy, losing consciousness before or after the fall. People from nearby offices came and called the ambulance. She was not able to get up on her own. She reports pain in her right leg, right knee, pain in the left eyebrow area, neck, shoulders, chest and abdomen. She denies taking aspirin recently. ED course: Blood pressure 158/84, heart rate 86, respiratory rate 18, saturating well on room air. Imaging showed nondisplaced right acute fifth, sixth, seventh rib fractures and right patellar comminuted fracture. Head and neck CT was negative for acute pathology. CT pelvis and abdomen was negative for hemoperitoneum, pneumothorax, hemothorax, hemopericardium or parenchymal lacerations. Left shoulder x-ray was negative for fracture or dislocation. Pelvis x-ray was negative for hip or pelvic fracture. EKG showed sinus rhythm. Patient is going to be admitted for mechanical fall, rib and patella fracture treatment and management. Social history: Lives with her , independent in her everyday activities. Used to be an inspector floor sub assembly. Denies smoking, drinking, recreational substances. Medications: Med rec is pending Surgical history: right-sided rotator cuff repair, cervical vertebral fusion,2 back surgeries, status post hysterectomy due to vaginal prolapse. Allergies: denies Review of Systems Review of Systems Systems Reviewed: All systems reviewed, normal except as documented Past Medical History Past Medical History CARDIAC: Positive Cardiac Disorders, Hypercholesterolemia and Hypertension GASTROINTESTINAL: Positive Gastrointestinal Disorders and Gastroesophageal Reflux Disease REPRODUCTIVE: Positive Previous Pregnancies MUSCULOSKELETAL: Positive Musculoskeletal Disorders, Arthritis and Degenerative Disk Disease ENDOCRINE: Positive Endocrine Disorders, Diabetes Mellitus Type 2 and Hypothyroidism Social History SMOKING STATUS: Never smoker SUBSTANCE USE: does not use ALCOHOL: Never Exam Vital Signs Temp Pulse Resp BP Pulse Ox O2 Del Method 98.2 F 65 16 123/63 99 Room Air 12/26/24 19:18 12/26/24 19:18 12/26/24 19:18 12/26/24 19:18 12/26/24 19:18 12/26/24 19:18 Narrative Exam Physical Exam General: Awake and in mild distress. Conversational and non-toxic appearing. HEENT: Normocephalic, atraumatic, mucous membranes moist. Small gash lateral to the left eyebrow. Heart: Regular rate and rhythm, no murmurs. Lungs: Clear to auscultation with no wheezing or crackles. Pain during palpation of the right half of the chest. Abdomen: Soft, nondistended, mild diffuse tenderness, positive bowel sounds. ?No guarding or rebound tenderness. Neurologic: Alert and oriented x3, no gross neurological deficit, and range of motion is restricted in the right knee, Able to wiggle toes on the right leg, strength on other extremities 5/5. Right knee is splinted. Bruises on bith knees bilaterally. Extremities: No edema. Range of motion is restricted in the right knee. Right knee is splinted. Bruises on both knees bilaterally. Skin: No rash or ecchymoses. Results: Labs 12/26/24 15:44 12/26/24 15:44 Labs: Short CBC 12/26/24 Range/Units 15:44 WBC 8.0 (3.6-11.0) Thou/mm3 Hgb 11.0 L (12.0-16.0) g/dL Hct 32.7 L (36.0-46.0) % Plt Count 250 (140-440) Thou/mm3 BMP 12/26/24 15:44 Sodium 141 Potassium 3.5 Chloride 109 H Carbon Dioxide 24.8 BUN 9 Creatinine 0.5 L Glucose 100 Calcium 8.9 Cardiac Enzymes 12/26/24 Range/Units 15:44 Troponin I < 0.020 (0.0-0.045) ng/mL Liver Function 12/26/24 Range/Units 15:44 Total Bilirubin 0.6 (0.3-1.2) mg/dL AST 16 (0-34) U/L ALT 8 L (10-49) U/L Alkaline Phosphatase 80 (46-116) U/L Albumin 4.2 (3.4-4.8) gm/dL Urine 12/26/24 Range/Units 17:26 Urine Color Lt-Yellow (Lt Yel-Yel) Urine Clarity Clear (Clear/Hazy) Urine pH 7.0 (5.0-7.0) Ur Specific [place] 1.012 (1.001-1.035) Urine Protein Negative (Neg - Trace) Urine Glucose (UA) Negative (Negative) ABG Interpretation ABG results: 12/26/24 15:44 VBG pH 7.45 VBG pCO2 38 VBG pO2 38 VBG Base Excess 2 Quality Measures Quality Measures VTE prophylaxis Advance care planning discussed with:: patient and child Medications Home Medications and Allergies Home Medications ?Medication ?Instructions ?Recorded ?Confirmed ?Type levothyroxine 75 mcg tablet 75 mcg PO QDAY 04/20/18 01/11/23 History lisinopril 10 mg tablet 10 mg PO QDAY 12/12/18 01/11/23 History acetaminophen 500 mg tablet 500 mg PO Q8HR PRN Pain 01/11/23 01/11/23 History alprazolam 0.5 mg tablet 0.5 mg PO HS 01/11/23 01/11/23 History Held on 01/11/23. Instructions: Resume on 01/12/23. atorvastatin 20 mg tablet 20 mg PO DAILY 01/11/23 01/11/23 History furosemide 20 mg tablet 20 mg PO DAILY 01/11/23 01/11/23 History metformin 500 mg tablet 500 mg PO DAILY 01/11/23 01/11/23 History omeprazole 20 mg capsule,delayed 20 mg PO DAILY 01/11/23 01/11/23 History release Allergies Allergy/AdvReac Type Severity Reaction Status Date / Time No Known Allergies Allergy Verified 01/11/23 11:15 Visit Medications Dextrose (Dextrose 50%-Water Inj 50 Ml Syringe) 25 ml IV Q15MIN PRN PRN Reason: BG 50-70 responsive npo pt Stop: 01/25/25 20:33 Dextrose (Dextrose 50%-Water Inj 50 Ml Syringe) 50 ml IV Q15MIN PRN PRN Reason: BG <50 OR BG <70 & pt unresponsive Stop: 01/25/25 20:33 Glucagon (Glucagon Inj 1 Mg Vial) 1 mg IM Q15MIN PRN PRN Reason: BG <70, and no IV access Insulin Human Lispro (Insulin Lispro (Admelog) 1 Unit/0.01 Ml Unit) 0 unit SC AC [facility]; Protocol Stop: 01/26/25 07:29 Discontinued Medications Lidocaine (Lidocaine 5% 1 Patch) 1 patch TOP X1 ONE Stop: 12/26/24 20:45 Morphine Sulfate (Morphine Sulf Inj 10 Mg/Ml Vial) 5 mg IVP X1 ONE Stop: 12/26/24 15:33 Last Admin: 12/26/24 15:41 Dose: 5 mg Morphine Sulfate (Morphine Sulf Inj 10 Mg/Ml Vial) 5 mg IVP X1 ONE Stop: 12/26/24 18:11 Last Admin: 12/26/24 18:17 Dose: 5 mg Ondansetron HCl (Ondansetron Inj 2 Mg/Ml Inj 2 Ml) 4 mg IV X1 ONE; Protocol Stop: 12/26/24 15:33 Last Admin: 12/26/24 15:41 Dose: 4 mg Assessment & Plan Plan The patient is a 74-year-old female with a previous medical history of hypertension, hyperlipidemia, type 2 diabetes, hypothyroidism, asthma, GERD, chronic back and neck pain, right-sided rotator cuff injury status postrepair who was brought in by ambulance after she fell on the street. #Mechanical fall #Right patellar fracture #Right V, , VII rib fractures Patient tripped over the piece of concrete on the street. Imaging was positive for right patellar fracture and right acute fifth, sixth, seventh rib fractures. In the ED orthopedic surgeon Dr. Vallejo was consulted. He also requested general surgery consult regarding the rib fractures management. Imaging was negative for hemoperitoneum, pneumothorax, hemothorax, hemopericardium or parenchymal lacerations. Plan: - pain conrol as needed - physical therapy eval - incentive spirometry - will hold off the general surgery consult for now due to the patient being stable without signs of pneumothorax, hemothorax, acute bleeding, hemoperitoneum. - orthopedic surgery consult #Hypertension Plan: - will hold off home BP medications due to normal blood pressure #Type 2 diabetes Plan: - sliding scale insulin with blood sugar checks - hypoglycemia protocol #Hypothyroidism Plan: - resume her home levothyroxine #Hyperlipidemia Plan: - med rec is pending #History of asthma Plan: - duonebs inhalations as needed #History of GERD Plan: - pantoprazole 40 mg qday Health maintenance: FEN: cardiac, carbohydrate consistent, NPO after midnight 12/26 DVT prophylaxis: SCDs GI prophylaxis: pantoprazole Dispo: med surg CODE STATUS: Full code Plan of care discussed with attending Dr. Horn. Ann Sunshine MD, PGY 1. Attending Provider Attestation/Addendum I have examined the patient, reviewed labs and imaging findings, discussed the case with the resident(s), and reviewed entered orders. I agree with the plan of care as outlined in this note, with these additional summaries/recommendations: Patient is a 74-year-old female with a medical history of primary hypertension, hyperlipidemia, previous cervical spine surgery, chronic back pain, constipation, vertigo, and ?Hypothyroidism who presented to [facility] emergency department on 12/26/2024 with chief complaint of severe pain after a ground-level fall. In the emergency department right knee x-ray revealed acute comminuted patellar fracture with what appears to be extensive blood in the joint space. CT scan of chest/abdomen/pelvis significant for nondisplaced acute fractures of right 5th, 6th, and 7th rib anteriorly. Orthopedics was consulted and recommends admission. Start pain management and will titrate as needed. Physical therapy consultation after orthopedics evaluation. Patient denies taking any anticoagulation except for baby aspirin but has not been compliant or taken this medicine recently. She denies cardiac history. She does endorse a history of vertigo and was prescribed meclizine previously by PCP. She denies dizziness at rest. We will continue to monitor for now and CT head on admission was negative for acute hemorrhage, mass effect or midline shift. Additional imaging studies did not reveal any further fractures and patient only endorses pain in her right knee and right ribs during my evaluation. We will continue home medications pending medication reconciliation. Hold anticoagulation for now. NPO after midnight incase surgical intervention is required tomorrow. Patient and daughter updated at bedside. All questions answered to satisfaction. Please see residents note for additional management and recommendations. Dr. Justina MD
[2024-12-26] MEDS: LIDOCAINE 5% 1 PATCH TOP (21:15)
[2024-12-26] MEDS: HEPARIN SOD INJ 5000 UNIT/ML VIAL SC (21:16)
[2024-12-26] MEDS: HYDROmorphone INJ 2 MG/ML VIAL 1 MG IVP (21:17)
[2024-12-26 21:23] VITALS: BP 149/74; PULSE 62; RESP 15; TEMP 37.2; O2SAT 99
[2024-12-27] VITALS (9 sets, daily range): BP systolic 124–137; BP diastolic 65–75; PULSE 60–71; RESP 16–99; TEMP 36.1–37.3; O2SAT 96–99; BMI 23.9
[2024-12-27] MEDS: oxyCODONE/APAP 5/325 TABLET 1 TAB PO (04:49)
--- NOTE | 2024-12-27 04:50 | PC.NURSE ---
pt is npo, complaining of pain, okay to give percocet with a sip of water per Dr. Nicolas.
[2024-12-27 06:25] LABS: Basophils % (Auto) 0 % (0-2.5); Eosinophils % (Auto) 0 % (0-10); Hematocrit 33.9 % (36.0-46.0); Hemoglobin 11.2 g/dL (12.0-16.0); Immature Granulocytes % (Auto) 0 % (0-0); Immature Granulocytes Auto 0.01 Thou/mm3 (0.00-0.00); Lymphocytes # (Auto) 1.3 Thou/mm3 (1.0-4.8); Lymphocytes % (Auto) 16 % (10-50); Mean Corpuscular Hemoglobin 28.6 pg (25.0-35.0); Mean Corpuscular Volume 87 fL (80-100); Monocytes # (Auto) 0.4 Thou/mm3 (0.0-0.8); Monocytes % (Auto) 5 % (0-12); Neutrophils # (Auto) 6.2 Thou/mm3 (1.8-7.7); Neutrophils % (Auto) 79 % (37-80); Nucleated Red Blood Cell % 0 /100 WBC (0); Platelet Count 244 Thou/mm3 (140-440); RDW Standard Deviation 42.6 fL (36.4-46.3); Red Blood Count 3.92 Miln/mm3 (4.00-5.20); White Blood Count 7.9 Thou/mm3 (3.6-11.0)
[2024-12-27 06:40] LABS: Alanine Aminotransferase 10 U/L (10-49); Albumin, Serum 4.6 gm/dL (3.4-4.8); Albumin/Globulin Ratio 1.8 (1.2-2.2); Alkaline Phosphatase 85 U/L (46-116); Anion Gap 10 (7-16); Aspartate Amino Transferase 18 U/L (0-34); BUN/Creatinine Ratio 20 Ratio (12-20); Bilirubin,Total 0.6 mg/dL (0.3-1.2); Blood Urea Nitrogen 12 mg/dL (9-23); Calcium 9.4 mg/dL (8.3-10.6); Calcium (Corrected) 9.4 mg/dL (8.5-10.1); Chloride 105 mMol/L (98-107); Creatinine (Component) 0.6 mg/dL (0.6-1.3); Globulin 2.6 gm/dL (2.3-3.5); Glucose 123 mg/dL (74-106); Magnesium 1.9 mg/dL (1.6-2.6); Osmolality,Calculated 283 (275-295); Phosphorous 3.7 mg/dL (2.4-5.1); Potassium 3.8 mMol/L (3.4-5.1); Sodium 142 mMol/L (136-145); Total Protein 7.2 gm/dL (5.7-8.2); eGFR > 60 See Note
[2024-12-27] MEDS: ONDANSETRON INJ 2 MG/ML INJ 2 ML 4 MG IV ×3 (08:00→21:31)
[2024-12-27] MEDS: PANTOPRAZOLE 40 MG TABLET PO (08:13)
[2024-12-27] MEDS: POTASSIUM CHLORIDE 20 mEq TABCR PO (08:14)
[2024-12-27] MEDS: SODIUM CHLORIDE 0.9% 1000 ML 1,000 ML 80 ML IV (08:49)
[2024-12-27] MEDS: MORPHINE SULF INJ 10 MG/ML VIAL 2 MG IVP ×2 (08:59→14:38)
--- NOTE | 2024-12-27 12:06 | PC.NURSE ---
Blood sugar is 77. Patient is NPO, notified Md, will follow up.--Yann
--- NOTE | 2024-12-27 13:50 | ESPR_ITS ---
<Statement entered by Melissa Hyman MD - 01/02/25 13:47> I reviewed above note and agree with findings and plans. I have also personally examined the patient with medicine team and went over assessment and plan with medical team including computer science intern and resident physician. Documentation for date of: 12/27/24 Senior resident attestation: Patient is 74-year-old female, sustained a mechanical ground-level fall,Was admitted to medical floor due to transverse fracture right patella, also complaining of pain left shoulder and head. Head CT was negative for acute hemorrhage, mass effect or midline shift, cervical spine CT showed no acute cervical fracture, CT chest abdomen pelvis showed nondisplaced acute fractures for fifth 6 seventh ribs anteriorly, knee x-ray showed acute comminuted patella fracture, the patient was admitted to medical floor. Dr. Obando orthopedic surgeon was consulted, who followed the patient, recommended knee brace and acute rehab placement. Also recommended Eliquis for DVT prophylaxis as patient will have a brace, may be immobile, high risk of DVT and PE. Patient evaluated and examined at the bedside, plan of care discussed with rest of the team including my attending physician, except as noted. Quresh PGY2 Subjective Subjective Interval history: Overnight admission. Patient was admitted secondary to mechanical fall with rib fracture of the right fifith, sixth, seventh ribs and acute comminuted patellar fracture. Patient complaining of pain, added Mountainside and Morphine. Pending Dr. Vallejo recommendations for comminuted patellar fracture. Shoulder x-ray showed no fracture or dislocation. Exam Vital Signs Temp Pulse Resp BP Pulse Ox O2 Del Method 98.5 F 61 18 126/75 96 Room Air 12/27/24 12:00 12/27/24 12:00 12/27/24 12:00 12/27/24 12:00 12/27/24 12:12/27/24 12:00 Narrative Exam General Appearance: Alert & Oriented X3, female who is lying in bed in discomfort. Rib tenderness and knee tenderness. HEENT: Skull symmetrical and atraumatic. Conjunctivae pin and moist. Pupils equal, round, reactive to light and accommodation (PERRL). External ear without lesion or discharge. Straight, nares patient, mucosa pink, no discharge. No thyroid nodule appreciated. No cervical lymphadenopathy. Cardio: Normal Rate and Rhythm with S1 and S2 heart sounds. No murmurs or extra heart sounds auscultated. No bruits on carotid auscultation. No peripheral edema or cyanosis. Lungs: Symmetric with good expansion. Chest and back non-tender. Breath sounds vesicular without crackles, wheezing or rhonchi Abdomen: Non-tender, Non-distended, Normal Reactive Bowel Sounds Neuro: Alert, cooperative, oriented to person, place, and time. Speech clear. CN grossly intact. Upper motor strength 5/5 and Lower motor strength 5/5. Sensation intact. Objective Labs 12/28/24 05:01 12/28/24 05:01 Labs: Laboratory Results - last 24 hr 12/26/24 12/26/24 12/27/24 15:44 17:26 05:00 WBC 8.0 7.9 RBC 3.88 L 3.92 L Hgb 11.0 L 11.2 L Hct 32.7 L 33.9 L MCV 84 87 MCH 28.4 28.6 MCHC 33.6 33.0 RDW Std Deviation 41.7 42.6 Plt Count 250 244 Neut % (Auto) 73 79 Lymph % (Auto) 19 16 [place] % (Auto) 7 5 Eos % (Auto) 1 0 Baso % (Auto) 0 0 Neut # (Auto) 5.8 6.2 Lymph # (Auto) 1.5 1.3 [place] # (Auto) 0.5 0.4 Eos # (Auto) 0.1 0.0 Baso # (Auto) 0.0 0.0 Immature Gran # (Auto) 0.04 H 0.01 H Absolute Nucleated RBC 0.00 0.00 Immature Gran % 1 H 0 Nucleated RBC % 0 0 PT 11.3 INR 1.0 VBG pH 7.45 VBG pCO2 38 VBG pO2 38 VBG O2 Sat (Thor) 78 L VBG Base Excess 2 Sodium 141 142 Potassium 3.5 3.8 Chloride 109 H 105 Carbon Dioxide 24.8 27.0 Anion Gap 7 10 BUN 9 12 Creatinine 0.5 L 0.6 Estim Creat Clear Calc 87.9 67.0 eGFR > 60 > 60 BUN/Creatinine Ratio 18 20 Glucose 100 123 H Calculated Osmolality 279 283 Lactic Acid 1.1 Calcium 8.9 9.4 Corrected Calcium 8.9 9.4 Phosphorus 3.7 Magnesium 1.9 Total Bilirubin 0.6 0.6 AST 16 18 ALT 8 L 10 Alkaline Phosphatase 80 85 Ammonia < 10 L Troponin I < 0.020 B-Natriuretic Peptide 42 Total Protein 6.8 7.2 Albumin 4.2 4.6 Globulin 2.6 2.6 Albumin/Globulin Ratio 1.6 1.8 Procalcitonin < 0.04 Ur Collection Type Clean Catch Urine Color Lt-Yellow Urine Clarity Clear Urine pH 7.0 Ur Specific [place] 1.012 Urine Protein Negative Urine Glucose (UA) Negative Urine Ketones Negative Urine Blood Negative Urine Nitrite Negative Urine Bilirubin Negative Urine Urobilinogen (Auto) Negative Ur Leukocyte Esterase Positive Urine RBC 2 Urine WBC 4 Ur Squamous Epith Cells < 1 Urine Bacteria None Ur Culture Indicated? Not Indicated Urine Opiates Screen Positive A Urine Fentanyl Screen Negative Ur Barbiturates Screen Negative U Amphetamin/Meth Scrn Negative U Benzodiazepines Scrn Positive A U Cocaine Metab Screen Negative U Marijuana (THC) Screen Negative Ethyl Alcohol < 3.0 Blood Type A Positive Antibody Screen NEGATIVE Blood Bank Wristband ID Yes ABG Interpretation ABG results: 12/26/24 15:44 VBG pH 7.45 VBG pCO2 38 VBG pO2 38 VBG Base Excess 2 Quality Measures Quality Measures VTE prophylaxis Advance care planning discussed with:: patient Assessment & Plan Assessment Current Active Medications: Generic Name Dose Route Start Last Admin Trade Name Freq PRN Reason Stop Dose Admin Acetaminophen 650 mg 12/26/24 20:28 Acetaminophen 325 Mg Tablet PO 01/25/25 20:27 Q6H PRN Fever >100.3 or pain 1-3 Hydrocodone Bitart/Acetaminophen 1 tab 12/27/24 08:34 Hydrocodone/Apap 5/325 Tablet PO 01/01/25 08:33 Q4HR PRN PAIN SCALE 4-6 (Moderate Albuterol/Ipratropium 3 ml 12/26/24 21:34 Albuterol/Ipratropium (Duoneb) Rt Brooke 3 Ml Nebu INH 01/25/25 21:33 Q2HR PRN SHORTNESS OF BREATH OR WHEEZE Dextrose 25 ml 12/26/24 20:34 Dextrose 50%-Water Inj 50 Ml Syringe IV 01/25/25 20:33 Q15MIN PRN BG 50-70 responsive npo pt Dextrose 50 ml 12/26/24 20:34 Dextrose 50%-Water Inj 50 Ml Syringe IV 01/25/25 20:33 Q15MIN PRN BG <50 OR BG <70 & pt unresponsive Glucagon 1 mg 12/26/24 20:34 Glucagon Inj 1 Mg Vial IM Q15MIN PRN BG <70, and no IV access Sodium Chloride 1,000 mls @ 80 mls/hr 12/27/24 08:34 12/27/24 08:49 Ns IV 12/27/24 21:03 80 mls/hr .[id number] ONE Administration Insulin Human Lispro 0 unit 12/27/24 07:30 12/27/24 12:00 Insulin Lispro (Admelog) 1 Unit/0.01 Ml Unit SC 01/26/25 07:29 Not Given AC ANILA Protocol Levothyroxine Sodium 75 mcg 12/27/24 06:00 12/27/24 06:05 Levothyroxine Sodium 25 Mcg Tablet PO 01/26/25 05:59 Not Given ACBR ANILA Morphine Sulfate 2 mg 12/27/24 08:35 12/27/24 08:59 Morphine Sulf Inj 10 Mg/Ml Vial IVP 01/01/25 08:34 2 mg Q4HR PRN Administration PAIN SCALE 7-10 (Severe Ondansetron HCl 4 mg 12/26/24 20:28 12/26/24 21:17 Ondansetron Inj 2 Mg/Ml Inj 2 Ml IV 01/25/25 20:27 4 mg Q6H PRN Administration NAUSEA OR VOMITING Protocol Pantoprazole Sodium 40 mg 12/27/24 09:00 12/27/24 08:13 Pantoprazole 40 Mg Tablet PO 01/26/25 08:59 40 mg QDAY ANILA Administration Sennosides 1 tab 12/26/24 20:28 Senna Tablet PO 01/25/25 20:27 QDAY PRN constipation Protocol Plan The patient is a 74-year-old female with a previous medical history of hypertension, hyperlipidemia, type 2 diabetes, hypothyroidism, asthma, GERD, chronic back who was admitted on 12/26/2024 for acute comminuted patellar fracture and nondisplaced fractures of 5, 6, and 7 ribs. #Mechanical fall #Right patellar fracture #Right V, , VII rib fractures Patient exereinced a mechanical fall secondary to tripping on a raised piece of concrete. Denied seizures or sycnope. Denied Dizziness. Images showed right patellar frracture and 5, 6, and 7 ribs nondisplaced fractures. In the ED orthopedic surgeon Dr. Vallejo was consulted. He also requested general surgery consult regarding the rib fractures management. Imaging was negative for hemoperitoneum, pneumothorax, hemothorax, hemopericardium or parenchymal lacerations. Plan: - Pain management Tylenol, Mountainside 5, and Morpnine 1 mg IV Q4HRs - physical therapy eval - incentive spirometry - Consulted Ortho, Dr. Vallejo, appreciate recommendations. Requested information be faxed to office #Hypertension Plan: - will hold off home BP medications due to normal blood pressure -Hold Losartan 50 mg once daily as BP is within normal limits #Type 2 diabetes Plan: - sliding scale insulin with blood sugar checks - hypoglycemia protocol #Hypothyroidism Plan: - resume her home levothyroxine #Hyperlipidemia Plan: -Atorvastatin 20 mg HS #History of asthma Plan: - duonebs inhalations as needed #History of GERD Plan: - pantoprazole 40 mg qday Health maintenance: Disp: pending Ortho recs, Dr. Vallejo, appreciate recommendations. FEN: cardiac, carbohydrate consistent, NPO After midnight DVT prophylaxis: SCDs GI prophylaxis: pantoprazole Dispo: med surg CODE STATUS: Full code - The patient's plan was discussed with attending Dr. Hyman and senior residents Dr. Farooq Soria MD PGY1 Internal Medicine
--- NOTE | 2024-12-27 15:38 | PC.SS ---
Patient is Irish speaking only. Patient admitted for ground level fall. Patient's family at bedside requested to speak regarding discharge planning needs. Patient is alert/oriented. Patient resides with . Prior to hospitalization patient was independent with ADL's. Patient is pending a consult with Ortho-Dr. Vallejo. Daughter, Gali, states she prefers patient to d/c to SNF. They prefer [facility] since they live in [place]. Daughter is the main careprovider and the alt medical decision maker. Gali Adames, @ [phone] She states if she is unavailable in an emergency, we could contact her brother, Simon Love @ [phone]. SS will send inquiry through [employer] to all local SNF's. PASRR will be completed. Patient may need gurney transport upon discharge alt medical decison maker: Gali Granados,
--- NOTE | 2024-12-27 19:50 | PD.ORTHCON ---
HPI Consult details Reason for consultation narrative: Pain right knee, hips, left shoulder, right and left chest wall History of present illness: Patient is a very nice 74-year-old who was walking tripped and fell face forward striking her left parietal scalp both wrists left shoulder right knee Past Medical History Past Medical History NEUROLOGIC: Positive Head Trauma; Negative Neurological Disorders or Seizures CARDIAC: Positive Cardiac Disorders, Hypercholesterolemia and Hypertension; Negative Congestive Heart Failure RESPIRATORY: Positive Asthma; Negative Chronic Obstructive Pulmonary Disease (COPD) GASTROINTESTINAL: Positive Gastrointestinal Disorders and Gastroesophageal Reflux Disease GENITOURINARY: Negative Genitourinary Disorders or Renal Disease REPRODUCTIVE: Positive Previous Pregnancies MUSCULOSKELETAL: Positive Musculoskeletal Disorders, Arthritis and Degenerative Disk Disease ENT: Positive Head Trauma ENDOCRINE: Positive Endocrine Disorders, Diabetes Mellitus Type 2 and Hypothyroidism; Negative Diabetes Mellitus Type 1 HEMATOLOGIC: Negative Blood Disorders or Sickle Cell Disease OTHER HISTORY: Negative Hospitalization, Autoimmune Disease, Down Syndrome, Developmental Delay, Shingles, Falls, Blood Transfusions, Anesthesia Reactions or Cancer Family History FAMILY HISTORY: Negative Family Cardiac Disorders Social History SMOKING STATUS: Never smoker SUBSTANCE USE: does not use Meds Home Medications and Allergies Home Medications ?Medication ?Instructions ?Recorded ?Confirmed ?Type levothyroxine 75 mcg tablet 75 mcg PO QDAY 04/20/18 12/27/24 History acetaminophen 500 mg tablet 500 mg PO Q8HR PRN Pain 01/11/23 12/27/24 History alprazolam 0.5 mg tablet 0.5 mg PO HS 01/11/23 12/27/24 History Held on 01/11/23. Instructions: Resume on 01/12/23. atorvastatin 20 mg tablet 20 mg PO DAILY 01/11/23 12/27/24 History furosemide 20 mg tablet 20 mg PO DAILY 01/11/23 12/27/24 History metformin 500 mg tablet 500 mg PO DAILY 01/11/23 12/27/24 History omeprazole 20 mg capsule,delayed 20 mg PO DAILY 01/11/23 12/27/24 History release losartan 50 mg tablet 50 mg PO DAILY 12/27/24 12/27/24 History Allergies Allergy/AdvReac Type Severity Reaction Status Date / Time No Known Allergies Allergy Verified 01/11/23 11:15 Exam Vital Signs Temp Pulse Resp BP Pulse Ox O2 Del Method 99.0 F 60 18 129/73 96 Room Air 12/27/24 16:00 12/27/24 16:00 12/27/24 16:00 12/27/24 16:00 12/27/24 16:00 12/27/24 16:00 Narrative Exam Patient is a very alert young appearing 74-year-old who fell. She tripped. There was no loss of consciousness. No history of strokelike symptoms. No seizure activity. She is complaining of some pain in the left frontal parietal scalp with slight swelling being noted. She is able to turn head [id number] lift her head off the pillow. Minimal pain neck previous neck surgery. Again the fall really did not exacerbate her underlying neck pain. She has no pain other than she normally has. The fall did not exacerbate her neck pain She has excellent range of motion shoulders elbows wrist hands and fingers she is able to lift both arms. She does have pain in her left shoulder girdle. She does have some weakness with belly press Hornblower test. No increased pain right shoulder. She did have right shoulder surgery for rotator cuff repair and then manipulation for adhesive capsulitis approximately 12 years ago. She had some underlying persistent right shoulder pain and left shoulder pain since then. She is complaining of pain in both wrist. Minimal swelling noted she has good palmar flexion dorsiflexion of both wrist unable to flex fingers distal palmar crease . Palpation of cervical thoracic and lumbar spine do not increase the discomfort in any of these 3 regions of the axial skeleton. She does have some chest wall tenderness to palpation right and left chest wall. She is not tachypneic. Does not have any significant pain with deep breathing. No abdominal discomfort. Able to move both hips. Pain swelling right knee. Active flexion extension of feet toes noted. Results - Ortho Labs 12/27/24 05:00 12/27/24 05:00 Labs: Short CBC 12/27/24 Range/Units 05:00 WBC 7.9 (3.6-11.0) Thou/mm3 Hgb 11.2 L (12.0-16.0) g/dL Hct 33.9 L (36.0-46.0) % Plt Count 244 (140-440) Thou/mm3 BMP 12/27/24 05:00 Sodium 142 Potassium 3.8 Chloride 105 Carbon Dioxide 27.0 BUN 12 Creatinine 0.6 Glucose 123 H Calcium 9.4 Liver Function 12/27/24 Range/Units 05:00 Total Bilirubin 0.6 (0.3-1.2) mg/dL AST 18 (0-34) U/L ALT 10 (10-49) U/L Alkaline Phosphatase 85 (46-116) U/L Albumin 4.6 (3.4-4.8) gm/dL Hemoglobin 11.2 ABG Interpretation ABG results: 12/26/24 15:44 VBG pH 7.45 VBG pCO2 38 VBG pO2 38 VBG Base Excess 2 Assessment & Plan Additional Assessment Additional comments: 1. Left shoulder contusion. I went through all the x-rays with the family and she does have some acromioclavicular arthritis and early glenohumeral arthritis. No fracture of the acromion or humeral neck noted. Does have significant osteopenia osteoporosis. 2. We went through the x-rays of her cervical spine and she does have a plate. X-ray of the right knee was noted and she does have pre-existing Tri compartment arthritis right knee. She has a transverse fracture right patella and perfect position Plan Organ to get her up with physical therapy. She can weight-bear to tolerance on right lower extremity. I like to get her in a fracture brace so we can dial in 0 to 20 degrees of range of motion. She is going to need to go home on Eliis. She may need snf admission. If she goes home she is going to need a hospital bed, trapezius, bedside commode, walker. We need to do serial x-rays of her patella once a week for the next 3 weeks.
[2024-12-27] MEDS: MORPHINE SULF INJ 10 MG/ML VIAL IVP (20:10)
[2024-12-27] MEDS: APIXABAN 2.5 MG TABLET PO (20:17)
[2024-12-28] VITALS (11 sets, daily range): BP systolic 129–150; BP diastolic 62–77; PULSE 57–79; RESP 14–99; TEMP 36.3–37.2; O2SAT 96–100; BMI 11.0
[2024-12-28] MEDS: ALBUTEROL/IPRATROPIUM (Duoneb) RT SOL 3 ML NEBU INH (00:05)
[2024-12-28] MEDS: HYDROmorphone INJ 2 MG/ML VIAL 0.5 MG IVP ×2 (01:05→09:11)
[2024-12-28] MEDS: LEVOTHYROXINE SODIUM 25 MCG TABLET 75 MCG PO (05:32)
[2024-12-28 06:02] LABS: Basophils % (Auto) 0 % (0-2.5); Eosinophils % (Auto) 1 % (0-10); Hematocrit 35.1 % (36.0-46.0); Hemoglobin 11.3 g/dL (12.0-16.0); Immature Granulocytes % (Auto) 0 % (0-0); Immature Granulocytes Auto 0.02 Thou/mm3 (0.00-0.00); Lymphocytes # (Auto) 1.3 Thou/mm3 (1.0-4.8); Lymphocytes % (Auto) 17 % (10-50); Mean Corpuscular HGB Conc 32.2 g/dl (31.0-37.0); Mean Corpuscular Hemoglobin 27.7 pg (25.0-35.0); Mean Corpuscular Volume 86 fL (80-100); Monocytes # (Auto) 0.5 Thou/mm3 (0.0-0.8); Monocytes % (Auto) 7 % (0-12); Neutrophils # (Auto) 5.7 Thou/mm3 (1.8-7.7); Neutrophils % (Auto) 75 % (37-80); Nucleated Red Blood Cell % 0 /100 WBC (0); Platelet Count 253 Thou/mm3 (140-440); RDW Standard Deviation 42.5 fL (36.4-46.3); Red Blood Count 4.08 Miln/mm3 (4.00-5.20); White Blood Count 7.6 Thou/mm3 (3.6-11.0)
[2024-12-28 06:31] LABS: Alanine Aminotransferase 10 U/L (10-49); Albumin, Serum 4.4 gm/dL (3.4-4.8); Albumin/Globulin Ratio 1.7 (1.2-2.2); Alkaline Phosphatase 75 U/L (46-116); Anion Gap 11 (7-16); Aspartate Amino Transferase 18 U/L (0-34); BUN/Creatinine Ratio 22 Ratio (12-20); Bilirubin,Total 0.6 mg/dL (0.3-1.2); Blood Urea Nitrogen 11 mg/dL (9-23); Calcium 8.7 mg/dL (8.3-10.6); Calcium (Corrected) 8.7 mg/dL (8.5-10.1); Carbon Dioxide 24.8 mMol/L (20.0-31.0); Chloride 106 mMol/L (98-107); Creatinine (Component) 0.5 mg/dL (0.6-1.3); Estimated Creatinine Clearance 80.4 mL/min (>60); Globulin 2.6 gm/dL (2.3-3.5); Glucose 99 mg/dL (74-106); Magnesium 1.8 mg/dL (1.6-2.6); Osmolality,Calculated 282 (275-295); Phosphorous 3.5 mg/dL (2.4-5.1); Potassium 3.6 mMol/L (3.4-5.1); Sodium 142 mMol/L (136-145); eGFR > 60 See Note
[2024-12-28] MEDS: PANTOPRAZOLE 40 MG TABLET PO (09:02)
[2024-12-28] MEDS: APIXABAN 2.5 MG TABLET PO ×2 (09:02→21:05)
[2024-12-28] MEDS: ONDANSETRON INJ 2 MG/ML INJ 2 ML 4 MG IV (09:04)
[2024-12-28] MEDS: LOSARTAN POTASSIUM 25 MG TABLET PO (09:09)
--- NOTE | 2024-12-28 09:17 | PC.SS ---
PASSR LVL1 completed and downloaded.
--- NOTE | 2024-12-28 09:18 | PC.SS ---
[facility] referral submitted for SNF, pending responses. SS reached out to Vivian with [facility] to inform her of pts #1 choice being their facility.
--- NOTE | 2024-12-28 10:39 | PC.SS ---
Rounding: No SX for pt, 1-2 more days of monitoring and DC plan to SNF. (Pending choice)
--- NOTE | 2024-12-28 11:43 | PC.SS ---
SS met with pt and her dtr Elizabeth and over phone was dtr Gali in regards t DC plan. DC plan to was confirmed. SS explained pt daylin require auth due to insurance, once PT notes are in SS will update Vivian at for auth.
[2024-12-28] MEDS: LIDOCAINE 5% 1 PATCH TOP (11:54)
--- NOTE | 2024-12-28 12:50 | ESPR_ITS ---
<Statement entered by Melissa Hyman MD - 01/08/25 13:16> I reviewed above note and agree with findings and plans. I have also personally examined the patient with medicine team and went over assessment and plan with medical team including internet marketing strategist and resident physician. Documentation for date of: 12/28/24 Senior resident attestation: Patient is 74-year-old female, sustained a mechanical ground-level fall,Was admitted to medical floor due to transverse fracture right patella, also complaining of pain left shoulder and head. Head CT was negative for acute hemorrhage, mass effect or midline shift, cervical spine CT showed no acute cervical fracture, CT chest abdomen pelvis showed nondisplaced acute fractures for fifth 6 seventh ribs anteriorly, knee x-ray showed acute comminuted patella fracture, the patient was admitted to medical floor. Dr. Obando orthopedic surgeon was consulted, who followed the patient, recommended knee brace and acute rehab placement. Also recommended Eliquis for DVT prophylaxis as patient will have a brace, may be immobile, high risk of DVT and PE. Pt is pending insurance auth, anticipate discharge tomorrow. Patient evaluated and examined at the bedside, plan of care discussed with rest of the team including my attending physician, except as noted. Quresh PGY2 Subjective Subjective Interval history: No overnight events for patient. Patient followed up with PT and recommending SNF placement. Patient stated mild tenderness with movement, switched to oral pain management. Eliquis 2.5 mg BID starting at 9:00 PM. Exam Vital Signs Temp Pulse Resp BP Pulse Ox O2 Del Method 98.8 F 62 18 129/62 98 Room Air 12/28/24 11:34 12/28/24 11:34 12/28/24 11:34 12/28/24 11:34 12/28/24 11:34 12/28/24 11:34 Narrative Exam General Appearance: Alert & Oriented X3, well-nourished female who is lying in bed in no acute distress HEENT: Skull symmetrical and atraumatic. Conjunctivae pin and moist. Pupils equal, round, reactive to light and accommodation (PERRL). External ear without lesion or discharge. Straight, nares patient, mucosa pink, no discharge. No thyroid nodule appreciated. No cervical lymphadenopathy. Cardio: Normal Rate and Rhythm with S1 and S2 heart sounds. No murmurs or extra heart sounds auscultated. No bruits on carotid auscultation. No peripheral edema or cyanosis. Lungs: Symmetric with good expansion. Chest and back non-tender. Breath sounds vesicular without crackles, wheezing or rhonchi Abdomen: Non-tender, Non-distended, Normal Reactive Bowel Sounds Neuro: Alert, cooperative, oriented to person, place, and time. Speech clear. CN grossly intact. Upper motor strength 5/5 and Lower motor strength 5/5. Sensation intact. Objective Labs 12/28/24 05:01 12/28/24 05:01 Labs: Laboratory Results - last 24 hr 12/28/24 05:01 WBC 7.6 RBC 4.08 Hgb 11.3 L Hct 35.1 L MCV 86 MCH 27.7 MCHC 32.2 RDW Std Deviation 42.5 Plt Count 253 Neut % (Auto) 75 Lymph % (Auto) 17 [place] % (Auto) 7 Eos % (Auto) 1 Baso % (Auto) 0 Neut # (Auto) 5.7 Lymph # (Auto) 1.3 [place] # (Auto) 0.5 Eos # (Auto) 0.0 Baso # (Auto) 0.0 Immature Gran # (Auto) 0.02 H Absolute Nucleated RBC 0.00 Immature Gran % 0 Nucleated RBC % 0 Sodium 142 Potassium 3.6 Chloride 106 Carbon Dioxide 24.8 Anion Gap 11 BUN 11 Creatinine 0.5 L Estim Creat Clear Calc 80.4 eGFR > 60 BUN/Creatinine Ratio 22 H Glucose 99 Calculated Osmolality 282 Calcium 8.7 Corrected Calcium 8.7 Phosphorus 3.5 Magnesium 1.8 Total Bilirubin 0.6 AST 18 ALT 10 Alkaline Phosphatase 75 Total Protein 7.0 Albumin 4.4 Globulin 2.6 Albumin/Globulin Ratio 1.7 ABG Interpretation ABG results: 12/26/24 15:44 VBG pH 7.45 VBG pCO2 38 VBG pO2 38 VBG Base Excess 2 Quality Measures Quality Measures VTE prophylaxis Advance care planning discussed with:: patient Assessment & Plan Assessment Current Active Medications: Generic Name Dose Route Start Last Admin Trade Name Freq PRN Reason Stop Dose Admin Acetaminophen 650 mg 12/26/24 20:28 Acetaminophen 325 Mg Tablet PO 01/25/25 20:27 Q6H PRN Fever >100.3 or pain 1-3 Hydrocodone Bitart/Acetaminophen 1 tab 12/27/24 08:34 Hydrocodone/Apap 5/325 Tablet PO 01/01/25 08:33 Q4HR PRN PAIN SCALE 4-6 (Moderate Albuterol/Ipratropium 3 ml 12/26/24 21:34 12/28/24 00:05 Albuterol/Ipratropium (Duoneb) Rt Brooke 3 Ml Nebu INH 01/25/25 21:33 3 ml Q2HR PRN Administration SHORTNESS OF BREATH OR WHEEZE Apixaban 2.5 mg 12/27/24 21:00 12/28/24 09:02 Apixaban 2.5 Mg Tablet PO 01/26/25 20:59 2.5 mg BID ANILA Administration Atorvastatin Calcium 20 mg 12/27/24 21:00 12/27/24 20:28 Atorvastatin Calcium 20 Mg Tablet PO 01/26/25 20:59 Not Given HS ANILA Dextrose 25 ml 12/26/24 20:34 Dextrose 50%-Water Inj 50 Ml Syringe IV 01/25/25 20:33 Q15MIN PRN BG 50-70 responsive npo pt Dextrose 50 ml 12/26/24 20:34 Dextrose 50%-Water Inj 50 Ml Syringe IV 01/25/25 20:33 Q15MIN PRN BG <50 OR BG <70 & pt unresponsive Glucagon 1 mg 12/26/24 20:34 Glucagon Inj 1 Mg Vial IM Q15MIN PRN BG <70, and no IV access Hydromorphone HCl 0.5 mg 12/28/24 08:19 12/28/24 09:11 Hydromorphone Inj 2 Mg/Ml Vial IVP 01/02/25 08:18 0.5 mg Q4HR PRN Administration PAIN SCALE 7-10 (Severe Insulin Human Lispro 0 unit 12/27/24 07:30 12/28/24 11:58 Insulin Lispro (Admelog) 1 Unit/0.01 Ml Unit SC 01/26/25 07:29 Not Given AC [facility] Protocol Levothyroxine Sodium 75 mcg 12/27/24 06:00 12/28/24 05:32 Levothyroxine Sodium 25 Mcg Tablet PO 01/26/25 05:59 75 mcg ACBR ANILA Administration Losartan Potassium 25 mg 12/28/24 09:00 04/17/25 09:09 Losartan Potassium 25 Mg Tablet PO 01/27/25 08:59 25 mg QDAY ANILA Administration Ondansetron HCl 4 mg 12/26/24 20:28 12/28/24 09:04 Ondansetron Inj 2 Mg/Ml Inj 2 Ml IV 01/25/25 20:27 4 mg Q6H PRN Administration NAUSEA OR VOMITING Protocol Pantoprazole Sodium 40 mg 12/27/24 09:00 12/28/24 09:02 Pantoprazole 40 Mg Tablet PO 01/26/25 08:59 40 mg QDAY ANILA Administration Sennosides 1 tab 12/26/24 20:28 Senna Tablet PO 01/25/25 20:27 QDAY PRN constipation Protocol Plan The patient is a 74-year-old female with a previous medical history of hypertension, hyperlipidemia, type 2 diabetes, hypothyroidism, asthma, GERD, chronic back who was admitted on 12/26/2024 for acute comminuted patellar fracture and nondisplaced fractures of 5, 6, and 7 ribs. #Mechanical fall #Right patellar fracture #Right V, , VII rib fractures Patient exereinced a mechanical fall secondary to tripping on a raised piece of concrete. Denied seizures or sycnope. Denied Dizziness. Images showed right patellar frracture and 5, 6, and 7 ribs nondisplaced fractures. Plan: - Pain management Tylenol and Percocet -Eliquis 2.5 mg BID for DVT prophylaxis -PT-->SNF - incentive spirometry #Hypertension Home dose of Losartan at 50 mg once daily currently holding. Plan: -Start at Losartan 25 mg once daily #Type 2 diabetes Plan: - sliding scale insulin - hypoglycemia protocol #Hypothyroidism Plan: - resumed her home levothyroxine #Hyperlipidemia Plan: -Atorvastatin 20 mg HS #History of asthma Plan: - duonebs inhalations as needed #History of GERD Plan: - pantoprazole 40 mg qday Health maintenance: Disp: pending snf FEN: cardiac, carbohydrate consistent, NPO After midnight DVT prophylaxis: Eliquis 2.5 mg BID GI prophylaxis: pantoprazole Dispo: med surg CODE STATUS: Full code - The patient's plan was discussed with attending Dr. Hyman and senior residents Dr. Farooq Soria MD PGY1 Internal Medicine
--- NOTE | 2024-12-28 14:36 | PC.SS ---
SS submitted PT notes via [facility] to Vivian ashby
--- NOTE | 2024-12-28 15:23 | PC.SS ---
Addendum entered by Tricia Ramos 12/28/24 16:04: Auth obtained for , per Team DC tomorrow pending Dr. Vallejo [facility] Original Note: SS sent PT notes to Vivian at , she stated she will start auth
--- NOTE | 2024-12-28 18:00 | PC.NURSE ---
Educated patient on importance of using IS states she used it by herself. Requested demonstration of how to properly use IS, daughter at bedside helped with encouragement.
[2024-12-28] MEDS: oxyCODONE/APAP 5/325 TABLET 1 TAB PO (19:06)
[2024-12-28] MEDS: METOCLOPRAMIDE INJ 5 MG/ML VIAL 2 ML IVP (19:07)
--- NOTE | 2024-12-28 20:13 | CONPN_ITS ---
Subjective Subjective Brief History: Patient is a very nice 74-year-old who was walking tripped and fell face forward striking her left parietal scalp both wrists left shoulder right knee Narrative: Patient was up with physical therapy. She was unable to do any significant walking either forward or backwards. She was able to stand for several minutes. She does have pain with movement right knee. She is in knee immobilizer Exam Vital Signs Temp Pulse Resp BP Pulse Ox O2 Del Method 98.9 F 79 18 150/72 H 99 Room Air 12/28/24 16:00 12/28/24 18:04 12/28/24 18:04 12/28/24 16:00 12/28/24 18:04 12/28/24 16:00 Pressure 150/72 Narrative Exam Physical examination shows that she has active flexion extension of right ankle right foot. Slightly increased amount of swelling right knee. Her knee immobilizer is slid towards her ankle. I showed her daughter how to loosen it and then pull it up. I told her that we want to send her to the patella in the brace where there is no foam. Teri Nicole is excepted her for tomorrow Objective - Ortho Labs 12/28/24 05:01 12/28/24 05:01 Labs: Laboratory Results - last 24 hr 12/28/24 05:01 WBC 7.6 RBC 4.08 Hgb 11.3 L Hct 35.1 L MCV 86 MCH 27.7 MCHC 32.2 RDW Std Deviation 42.5 Plt Count 253 Neut % (Auto) 75 Lymph % (Auto) 17 [place] % (Auto) 7 Eos % (Auto) 1 Baso % (Auto) 0 Neut # (Auto) 5.7 Lymph # (Auto) 1.3 [place] # (Auto) 0.5 Eos # (Auto) 0.0 Baso # (Auto) 0.0 Immature Gran # (Auto) 0.02 H Absolute Nucleated RBC 0.00 Immature Gran % 0 Nucleated RBC % 0 Sodium 142 Potassium 3.6 Chloride 106 Carbon Dioxide 24.8 Anion Gap 11 BUN 11 Creatinine 0.5 L Estim Creat Clear Calc 80.4 eGFR > 60 BUN/Creatinine Ratio 22 H Glucose 99 Calculated Osmolality 282 Calcium 8.7 Corrected Calcium 8.7 Phosphorus 3.5 Magnesium 1.8 Total Bilirubin 0.6 AST 18 ALT 10 Alkaline Phosphatase 75 Total Protein 7.0 Albumin 4.4 Globulin 2.6 Albumin/Globulin Ratio 1.7 Hemoglobin 11.3. Creatinine 0.5 ABG Interpretation ABG results: 12/26/24 15:44 VBG pH 7.45 VBG pCO2 38 VBG pO2 38 VBG Base Excess 2 Assessment & Plan Assessment Additional comments: Patient is having difficulty moving her bowels. She has not moved her bowels since being admitted. Will get Dr. Lopez who his her certified scrum master to have a look and see if we can develop a good bowel program. Plan Most likely will be ready for discharge tomorrow afternoon. Dr. Lopez consult Documentation for date of: 12/28/24
[2024-12-28] MEDS: SENNA TABLET 1 TAB PO (21:07)
[2024-12-29] VITALS (7 sets, daily range): BP systolic 118–148; BP diastolic 59–80; PULSE 64–80; RESP 16–18; TEMP 36.2–36.8; O2SAT 92–97
[2024-12-29 05:34] LABS: Basophils % (Auto) 0 % (0-2.5); Eosinophils # (Auto) 0.2 Thou/mm3 (0.0-0.5); Eosinophils % (Auto) 3 % (0-10); Hematocrit 35.2 % (36.0-46.0); Hemoglobin 11.7 g/dL (12.0-16.0); Immature Granulocytes % (Auto) 1 % (0-0); Immature Granulocytes Auto 0.03 Thou/mm3 (0.00-0.00); Lymphocytes % (Auto) 35 % (10-50); Mean Corpuscular HGB Conc 33.2 g/dl (31.0-37.0); Mean Corpuscular Hemoglobin 28.7 pg (25.0-35.0); Mean Corpuscular Volume 87 fL (80-100); Monocytes # (Auto) 0.6 Thou/mm3 (0.0-0.8); Monocytes % (Auto) 11 % (0-12); Neutrophils # (Auto) 2.9 Thou/mm3 (1.8-7.7); Neutrophils % (Auto) 50 % (37-80); Nucleated Red Blood Cell % 0 /100 WBC (0); Platelet Count 227 Thou/mm3 (140-440); RDW Standard Deviation 42.6 fL (36.4-46.3); Red Blood Count 4.07 Miln/mm3 (4.00-5.20); White Blood Count 5.7 Thou/mm3 (3.6-11.0)
[2024-12-29] MEDS: oxyCODONE/APAP 5/325 TABLET 1 TAB PO ×2 (06:03→16:55)
[2024-12-29] MEDS: LEVOTHYROXINE SODIUM 25 MCG TABLET 75 MCG PO (06:03)
[2024-12-29 06:19] LABS: Alanine Aminotransferase 12 U/L (10-49); Albumin, Serum 4.2 gm/dL (3.4-4.8); Albumin/Globulin Ratio 1.5 (1.2-2.2); Alkaline Phosphatase 77 U/L (46-116); Anion Gap 10 (7-16); Aspartate Amino Transferase 24 U/L (0-34); BUN/Creatinine Ratio 15 Ratio (12-20); Bilirubin,Total 0.7 mg/dL (0.3-1.2); Blood Urea Nitrogen 9 mg/dL (9-23); Calcium 9.2 mg/dL (8.3-10.6); Calcium (Corrected) 9.2 mg/dL (8.5-10.1); Carbon Dioxide 24.1 mMol/L (20.0-31.0); Chloride 106 mMol/L (98-107); Creatinine (Component) 0.6 mg/dL (0.6-1.3); Globulin 2.8 gm/dL (2.3-3.5); Glucose 92 mg/dL (74-106); Osmolality,Calculated 278 (275-295); Phosphorous 3.7 mg/dL (2.4-5.1); Potassium 3.7 mMol/L (3.4-5.1); Sodium 140 mMol/L (136-145); eGFR > 60 See Note
[2024-12-29] MEDS: LACTULOSE SYRUP 20 GM/30 ML UDC PO ×2 (08:38→12:16)
[2024-12-29] MEDS: POTASSIUM CHLORIDE 10% 20 MEQ/15 ML UDC 40 MEQ GT (08:39)
[2024-12-29] MEDS: APIXABAN 2.5 MG TABLET PO (08:39)
[2024-12-29] MEDS: PANTOPRAZOLE 40 MG TABLET PO (08:39)
[2024-12-29] MEDS: LIDOCAINE 5% 1 PATCH TOP (14:06)
--- NOTE | 2024-12-29 14:21 | ESDS_ITS ---
<Statement entered by Melissa Hyman MD - 01/08/25 13:18> I reviewed above note and agree with findings and plans. I have also personally examined the patient with medicine team and went over assessment and plan with medical team including international trade analyst and resident physician. Planned Discharge Date 12/29/24 DS: Providers Provider Date of admission: 12/26/24 20:28 Primary care physician: Michael Clay Admitting Provider: Hollis Horn MD Attending Provider on Admission: Melissa Hyman MD Consults: 12/26/24 20:33 Consult to Orthopedic Routine Comment: right patellar fracture Consulting Provider: Rahul Vallejo Referral Physical Therapy Routine Comment: Physician Instructions: 12/27/24 19:58 Referral Physical Therapy Urgent Comment: Physician Instructions: Instructions: Fracture right patella. She can weight-bear to tolerance on right lower extremity. Make sure she is safe with a walker. Show her how to do upper extremity strengthening exercises and strengthening exercises left lower extremity. 12/28/24 20:16 Consult to Gastroenterology Urgent Comment: Consulting Provider: Tung Lopez Instructions: Patient is a very nice patient of yours. She has not moved her bowels. Please help us with bowel program. She will be going to half-way facility and it would be nice for a good bowel program there thank you so much Attending Provider on DC: Nori Soria MD Discharging Provider: Nori Soria MD DS: Diagnosis Problem List Completed Was Problem List Reviewed/Reconciled?: Yes Hospital Course Hospital Course Hospital course: Summary: The patient is a 74-year-old female with a previous medical history of hypertension, hyperlipidemia, type 2 diabetes, hypothyroidism, asthma, GERD, chronic back who was admitted on 12/26/2024 for acute comminuted patellar fracture and nondisplaced fractures of 5, 6, and 7 ribs. ER course: Blood pressure 158/84, heart rate 86, respiratory rate 18, saturating well on room air. Imaging showed nondisplaced right acute fifth, sixth, seventh rib fractures and right patellar comminuted fracture. Head and neck CT was negative for acute pathology. CT pelvis and abdomen was negative for hemoperitoneum, pneumothorax, hemothorax, hemopericardium or parenchymal lacerations. Left shoulder x-ray was negative for fracture or dislocation. Pelvis x-ray was negative for hip or pelvic fracture. EKG showed sinus rhythm. Hospital Course: During hospitilization, orthopedics consulted, which recommend medical management and no surgical intervention planed for comminuted patellar fracture. Fracture brace recommended for patient with serial x-rays for patella once a week for the next 3 weeks. DVT prophylaxis recommended by ortho, Eliquis 2.5 mg recommended for a total of 12 days. Please follow up with Dr. Vallejo Physical therapy recommended short SNF course. Given mechanical fall, CT head negative. Shoulder x-ray was negative for any acute fractures. #Mechanical fall #Right patellar fracture #Right V, , VII rib fractures #Hypertension #Diabetes Mellitus Type 2, non-insulin dependent #Hypothyroidism #Hyperlipidemia #History of asthma #History of GERD Instructions: -Please continue Eliquis for 10 more days for DVT prophylaxis, please follow up with orthopedics for further recommendations -your new medication of Eliquis, increases your risk of bleeding, please seek immediate medical attention -Please stop Losartan 50 mg and start Losartan 25 mg once daily -Please do serial x-rays of patella once a week for the next 3 weeks. -Please follow up with your primary care provider within one week of discharge -Please follow up with Dr. Vallejo if orthopedics. -If your symptoms worsen,please seek immediate medical attention and return to your nearest emergency room -If you do not have a primary care provider, you may follow up at the [facility] at [address] [place] [address] [address], [place] [address], Stable for SNF - The patient's plan was discussed with attending Dr. Hyman and senior residents Dr. Farooq Soria MD PGY1 Internal Medicine Patient is 74-year-old female, sustained a mechanical ground-level fall,Was admitted to medical floor due to transverse fracture right patella, also complaining of pain left shoulder and head. Head CT was negative for acute hemorrhage, mass effect or midline shift, cervical spine CT showed no acute cervical fracture, CT chest abdomen pelvis showed nondisplaced acute fractures for fifth 6 seventh ribs anteriorly, knee x-ray showed acute comminuted patella fracture, the patient was admitted to medical floor. Dr. Obando orthopedic surgeon was consulted, who followed the patient, recommended knee brace and acute rehab placement. Also recommended Eliquis for DVT prophylaxis as patient will have a brace, may be immobile, high risk of DVT and PE. Followup with orthopedic surgery within one week, Weekly Knee joint xrays and anticoagulation as prescribed by Orthopedic surgeon. Patient evaluated and examined at the bedside, plan of care discussed with rest of the team including my attending physician, except as noted. Quresh PGY2 Time Spent with Patient Time attestation: Total time spent providing and/or coordinating discharge services: at least 30 minutes of care and coordination Time spent: Greater than 30 minutes Exam Vital Signs Temp Pulse Resp BP Pulse Ox O2 Del Method 97.2 F 67 16 148/73 H 97 Room Air 12/29/24 12:12/29/24 12:12/29/24 12:12/29/24 12:12/29/24 12:12/29/24 12:00 Narrative Exam General Appearance: Alert & Oriented X3, well-nourished female who is lying in bed in mild discomfort, secondary to right knee patella fracture HEENT: Skull symmetrical and atraumatic. Conjunctivae pin and moist. Pupils equal, round, reactive to light and accommodation (PERRL). External ear without lesion or discharge. Straight, nares patient, mucosa pink, no discharge. No thyroid nodule appreciated. No cervical lymphadenopathy. Cardio: Normal Rate and Rhythm with S1 and S2 heart sounds. No murmurs or extra heart sounds auscultated. No bruits on carotid auscultation. No peripheral edema or cyanosis. Lungs: Symmetric with good expansion. Chest and back non-tender. Breath sounds vesicular without crackles, wheezing or rhonchi Abdomen: Non-tender, Non-distended, Normal Reactive Bowel Sounds Neuro: Alert, cooperative, oriented to person, place, and time. Speech clear. CN grossly intact. Upper motor strength 5/5 and Lower motor strength 5/5. Sensation intact. Discharge Plan Problem List Was Problem List Reviewed/Reconciled?: Yes Plan Patient Disposition: Xfer Skilled Nsg Fac (SNF) Care Plan Goals: Instructions: -Please continue Eliquis for 10 more days for DVT prophylaxis, please follow up with orthopedics for further recommendations -your new medication of Eliquis, increases your risk of bleeding, please seek immediate medical attention -Please stop Losartan 50 mg and start Losartan 25 mg once daily -Please do serial x-rays of patella once a week for the next 3 weeks. -Please follow up with your primary care provider within one week of discharge -Please follow up with Dr. Vallejo if orthopedics. -If your symptoms worsen,please seek immediate medical attention and return to your nearest emergency room -If you do not have a primary care provider, you may follow up at the [facility] at [address] [place] [address] [address], [place] [address], Prescriptions/Referrals Prescriptions/Med Rec: New losartan 25 mg Tablet 25 mg PO QDAY 30 Days Qty: 30 0RF hydrocodone-acetaminophen 5-325 mg Tablet 1 tab PO Q4HR MDD 3 max PRN (Reason: Pain Scale 7-10 (Severe) Qty: 5 0RF Eliquis 2.5 mg tablet 2.5 mg PO BID 10 Days Qty: 20 0RF Continued levothyroxine 75 mcg Tablet 75 mcg PO QDAY lidocaine [Lidoderm] 5 % adhesive patch,medicated 2 patch topical QDAY PRN (Reason: pain) Qty: 30 0RF Rx Instructions: leave on most painful area for up to 12 hrs metformin 500 mg tablet 500 mg PO DAILY Patient Comments: TAKE ONE TABLET poi EVERY DAY atorvastatin 20 mg tablet 20 mg PO DAILY acetaminophen 500 mg tablet 500 mg PO Q8HR PRN (Reason: Pain) Patient Comments: TAKE ONE TABLET BY MOUTH EVERY 8-12 HOURS NEEDED NO MORE THAN EIGHT TABLETS PER 24hrs alprazolam 0.5 mg tablet 0.5 mg PO HS omeprazole 20 mg capsule,delayed release(DR/EC) 20 mg PO DAILY furosemide 20 mg tablet 20 mg PO DAILY Discontinued losartan 50 mg tablet 50 mg PO DAILY Referrals: Michael Louis [Primary Care Provider] - Rahul Vallejo MD [Physician] - Patient/Caregiver Discharge Instructions Other Discharge Activity Instructions:: Orthopedic: 1. Weight-bear to tolerance on right lower extremity. Should be either in her knee immobilizer or her fracture brace. The fracture brace can be set at 0 to 20 degrees of flexion while in bed. When she is up walking please lock the brace in full extension. We want to get her up at least twice a day to walk. She needs x-ray on 321 2 view right knee, 328 2 view right knee. I need to see those x-rays in my office. It would be great if somebody could drop off the disc. Maybe her family could do so. If she has marked increase in pain please call my office [phone]. My cell phone is 3 01/19/1761. I would recommend the Eliquis 2.5 mg twice daily for 3 weeks. [employer]: 1. Carga de peso en la extremidad inferior derecha seg?n tolerancia. Debe usar el inmovilizador de rodilla o la f?isabella para fracturas. La f?isabella para fracturas se puede ajustar en flexi?n de 0 a 20 grados mientras est? en cama. Cuando est? de pie caminando, bloquee la f?isabella en extensi?n completa. Queremos que se levante al menos dos veces al d?a para que camine. Necesita radiograf?as de la rodilla derecha (vista 321, 2) y de la rodilla derecha (vista 328, 2). Necesito jasiel esas radiograf?as en mi consultorio. Ser?a genial si alguien pudiera dejar el disco. Quiz?s randle walker podr?a hacerlo. Si presenta un aumento marcado del dolor, llame a mi consultorio al [phone]. Mi tel?fono celular es [phone]. Recomiendo Eliquis 2.5 mg dos veces al d?a sita 3 semanas. Education Materials: Preventing Falls How to ... Print Language: French Stand Alone Forms: Laura Award Info., Patient Portal Info Letter Discharge Order Discharge Orders: Discharge (Routine); Ordered 12/29/24 Ordered By: Nori Soria Quality Discharge Quality Measures VTE prophylaxis
--- NOTE | 2024-12-29 15:29 | PC.NURSE ---
report given to Kenia LAGUNA at [facility].
--- NOTE | 2024-12-29 17:07 | PC.NURSE ---
Upon discharge pt reported pain 8 out of 10 scale, percoset given.
== END 2024-12-29 17:00 | disposition skilled nursing facility (03) ==
LOC: SERX 18:46 → SERHOLD 21:46 → S3SX 12-27 05:41 → SERHOLD 12-28 11:58 → S3SX 12-28 13:21 → SERHOLD 12-29 07:14
PROVIDERS: Admitting Provider Student in an Organized Health Care Education/Training Program; Emergency Provider Emergency Medicine; PCP Physician Assistant; Visit Provider Internal Medicine
DX: S82.041A Displaced comminuted fracture of right patella, initial encounter for closed fracture (principal); S22.41XA Multiple fractures of ribs, right side, initial encounter for closed fracture; I10 Essential (primary) hypertension; E78.5 Hyperlipidemia, unspecified; E11.9 Type 2 diabetes mellitus without complications; E03.9 Hypothyroidism, unspecified; K21.9 Gastro-esophageal reflux disease without esophagitis; G89.29 Other chronic pain; M54.2 Cervicalgia; M54.9 Dorsalgia, unspecified; J45.909 Unspecified asthma, uncomplicated; W01.198A Fall on same level from slipping, tripping and stumbling with subsequent striking against other object, initial encounter; Y92.410 Unspecified street and highway as the place of occurrence of the external cause; S00.93XA Contusion of unspecified part of head, initial encounter; S40.012A Contusion of left shoulder, initial encounter; E78.00 Pure hypercholesterolemia, unspecified; M17.11 Unilateral primary osteoarthritis, right knee; M81.0 Age-related osteoporosis without current pathological fracture; W01.0XXA Fall on same level from slipping, tripping and stumbling without subsequent striking against object, initial encounter; W18.39XA Other fall on same level, initial encounter; W22.09XA Striking against other stationary object, initial encounter; Z79.01 Long term (current) use of anticoagulants; Z90.710 Acquired absence of both cervix and uterus; Z98.890 Other specified postprocedural states; Z01.810 Encounter for preprocedural cardiovascular examination
CPT/HCPCS: 36415; 70450; 71045; 71260; 72125; 73030; 73522; 73562; 74177; 80053; 80307; 80320; 81001; 82140; 82803; 83605; 83735; 83880; 84100; 84145; 84484; 85025; 85610; 86850; 86900; 86901; 87040; 93005; 94640; 96372; 96374; 96375; 97161; 99285; A4649; A9270; G0378; J1643; J2270; J2405; J2765; J3490; J7030; Q9967; G0480

== ENCOUNTER → 2025-01-23 | Outpatient (CLI) | payer MEDICARE, SELFPAY ==
--- NOTE | 2025-01-23 | XR_ITS ---
Examination: Right knee 2 views TECHNIQUE: AP lateral right knee 2 views INDICATIONS: Acute comminuted patellar fractures December 26, 2024 FINDINGS: Significant partial healing comminuted patellar fractures with satisfactory alignment No new fractures IMPRESSION: Significant partial healing comminuted patellar fractures with satisfactory alignment
== END | disposition home or self-care (01) ==
PROVIDERS: PCP Physician Assistant; Referring Provider Orthopaedic Surgery; Visit Provider Orthopaedic Surgery
DX: S82.044A Nondisplaced comminuted fracture of right patella, initial encounter for closed fracture (principal); X58.XXXA Exposure to other specified factors, initial encounter
CPT/HCPCS: 73560

== ENCOUNTER → 2025-02-08 | Outpatient (CLI) | payer MEDICARE, SELFPAY ==
--- NOTE | 2025-02-08 13:08 | XR_ITS ---
Examination: Right knee 2 views TECHNIQUE: AP lateral right knee 2 views Date and time: February 08, 2025 1322 hours Comparison January 23, 2025 INDICATIONS: History patellar fracture December 2024 FINDINGS: Comparison January 23, 2025 Severe osteopenia Partially and patellar fracture with stable alignment IMPRESSION: Partial healing patellar fracture with stable alignment
== END | disposition home or self-care (01) ==
LOC: CDIM 12:48
PROVIDERS: PCP Physician Assistant; Referring Provider Orthopaedic Surgery; Visit Provider Orthopaedic Surgery
DX: S82.001A Unspecified fracture of right patella, initial encounter for closed fracture (principal); X58.XXXA Exposure to other specified factors, initial encounter
CPT/HCPCS: 73560

== ENCOUNTER → 2025-02-12 | Outpatient (CLI) | payer MEDICARE, SELFPAY ==
--- NOTE | 2025-02-12 16:06 | XR_ITS ---
Examination: Duplex scan of the lower extremity, unilateral right Date and time of exam: February 12, 2025 1623 hours INDICATIONS: Knee fracture 2 months ago followed by right lower leg swelling and pain Technique: Duplex scan of the extremity veins using B-mode/grayscale imaging and Doppler spectral analysis and color flow Attention is directed to internal echogenicity, compression and augmentation involving these veins, color flow assessment, spectral analysis Findings: Major deep venous structures in the extremity demonstrate normal course and caliber. There is no evidence of deep vein thrombosis. Normal color flow and spectral analysis Impression: Negative for DVT..
--- NOTE | 2025-02-12 16:10 | XR_ITS ---
Examination: Tibia-Fibula, right , 2 views Technique: Tibia-fibula AP lateral 2 views Date and time of exam: February 12, 2025 1645 hours INDICATIONS: Patient fell December 2024 with injury to the lower leg, lower leg pain. FINDINGS: Prominent osteopenia Tibia and fibula appear intact IMPRESSION: Tibia-fibula appear intact
--- NOTE | 2025-02-12 16:10 | XR_ITS ---
Examination: Right femur 2 views TECHNIQUE: AP lateral femur 2 views Date and time: February 12, 2025 at 1653 hours INDICATIONS: Patient fell December 2024 with injury to the femur, femur pain. FINDINGS: Healed patellar fracture No acute femur fracture Greater trochanteric bursitis right hip Severe narrowing patellofemoral joint IMPRESSION: No acute femur fracture
--- NOTE | 2025-02-12 16:10 | XR_ITS ---
Examination:Right hip AP, lateral, AP pelvis 3 views Technique: Hip AP lateral, AP pelvis, 3 views Exam date and time:February 12, 2025 1645 hours INDICATIONS: Patient fell December 2024 with injury of the right hip, right hip pain. FINDINGS: No radiopaque fracture or dislocation Left hip bones of the pelvis intact Greater trochanteric bursitis right hip IMPRESSION: No hip fracture. Greater trochanteric bursitis right hip.
--- NOTE | 2025-02-12 16:10 | XR_ITS ---
Examination: Right ankle 2 views TECHNIQUE: AP lateral right ankle 2 views Date and time: February 12, 2025 1702 hours INDICATIONS: Patient fell December 2024 with injury to the ankle, ankle pain. FINDINGS: 12 mm plantar bony calcaneal spur Prominent osteopenia. Lateral malleolar soft tissue swelling. No acute ankle fracture IMPRESSION: No acute ankle fracture
--- NOTE | 2025-02-12 16:10 | XR_ITS ---
Examination: Right foot 2 views TECHNIQUE: AP lateral right foot 2 views Date and time: February 12, 2025, 7002 hours INDICATIONS: Patient fell December 2024 with injury to the foot, foot pain. FINDINGS: 1 mm, 5 mm opaque foreign bodies in the soft tissue plantar to the distal second metatarsal Old 2 mm chip fracture off the medial base proximal phalanx first digit Prominent osteopenia Large plantar bony calcaneal spur. No acute fracture IMPRESSION: Opaque foreign bodies as above 2 mm old chip fracture off the medial base proximal phalanx first digit
== END | disposition home or self-care (01) ==
PROVIDERS: PCP Physician Assistant; Referring Provider Orthopaedic Surgery; Visit Provider Orthopaedic Surgery
DX: M70.61 Trochanteric bursitis, right hip (principal); S90.451A Superficial foreign body, right great toe, initial encounter; S99.911A Unspecified injury of right ankle, initial encounter; S79.911A Unspecified injury of right hip, initial encounter; S89.91XA Unspecified injury of right lower leg, initial encounter; S79.921A Unspecified injury of right thigh, initial encounter; W19.XXXA Unspecified fall, initial encounter
CPT/HCPCS: 73502; 73552; 73590; 73600; 73620; 93971

== ENCOUNTER 2025-03-08 09:21 | Emergency (ER) | payer MEDICARE, SELFPAY ==
[2025-03-08 09:50] VITALS: BMI 21.4
[2025-03-08 09:52] VITALS: BP 125/76; PULSE 83; RESP 18; TEMP 37.2; O2SAT 99
--- NOTE | 2025-03-08 10:02 | XR_ITS ---
Examination: CT abdomen and pelvis without contrast. Coronal 3-D reconstructions. Sagittal 2-D reconstructions. Date and time of exam:(U March 08, 2025 1041 hours INDICATIONS: Diffuse abdominal pain and anorexia 2 weeks COMPARISON: December 26, 2024 CTDI: vol (mGy): 7.23 DLP: (mGycm): 326 Technique: Axial images of the abdomen have been obtained, 3 mm slice thickness Intravenous contrast material has not been administered. Low dose protocols were performed. One or more of the following dose reduction techniques were used; automated exposure control, adjustment of the mA and/or KV according to patient size, use of iterative reconstruction technique. Findings: No focal liver or splenic lesion No gallstones No pancreatic mass. 1 mm nonobstructing left renal calculus image 61 Moderate right renal parenchymal scar formation Aorta normal size No bowel obstruction Normal appendix No diverticulitis No bladder mass No pelvic mass Severe osteopenia IMPRESSION: 1 mm nonobstructing left renal calculus Moderate right renal parenchymal scar formation No hydronephrosis No CT findings of appendicitis bowel obstruction or diverticulitis
--- NOTE | 2025-03-08 10:02 | XR_ITS ---
Examination: AP lateral chest 2 views TECHNIQUE: Upright AP lateral chest 2 views Date and time: March 08 thousand 25 1026 hours INDICATIONS: Chest pain beginning one month ago. FINDINGS: Normal heart size. Lungs are clear. The osseous structures are intact, chronic osteoporotic compression mid dorsal vertebral body IMPRESSION: No active disease
--- NOTE | 2025-03-08 10:04 | PD.EDRME ---
Rapid Medical Screening Exam RME Arrival date/time: 03/08/25 09:21 Chief Complaint: Abdominal Pain Time Seen by Provider: 03/08/25 09:47 Vital signs: Vital Signs Temperature 98.9 F 03/08/25 09:52 Pulse Rate 83 03/08/25 09:52 Respiratory Rate 18 03/08/25 09:52 Blood Pressure 125/76 03/08/25 09:52 Pulse Oximetry (%) 99 03/08/25 09:52 Oxygen Delivery Method Room Air 03/08/25 09:52 Vital signs reviewed by provider: Yes RME Narrative: 74-year-old female with past medical history of diabetes, hypothyroid, hypertension presents for evaluation of abdominal pain x 2 weeks. She endorses weakness, anorexia, near syncope, nausea, and vomiting. She endorses intermittent chest pain radiating down her left arm. Patient was recently in a short-term rehab facility after dislocating her right knee. Patient has known right sided rib fractures after a fall at home.
[2025-03-08 10:27] LABS: Collection Type, Urine Clean Catch
[2025-03-08 10:30] LABS: Bilirubin,Urine Negative (Negative); Blood,Urine Trace (Negative); Clarity,Urine Clear (Clear/Hazy); Color,Urine Lt-Yellow (Lt Yel-Yel); Glucose, Urine Negative (Negative); Hyaline Casts,Urine < 1 /hpf (0-1); Ketones,Urine Negative (Negative); Leukocyte Esterase,Urine Positive (Negative); Nitrite,Urine Negative (Negative); PH,Urine 6.5 (5.0-7.0); Protein,Urine Negative (Neg - Trace); RBC,Urine 6 /hpf (0-3); Specific Gravity,Urine 1.016 (1.001-1.035); Squamous Epithelial Cell,Urine < 1 /hpf (0-5); Urobilinogen,Urine Negative mg/dL (0.0-1.0); WBC,Urine 4 /hpf (0-5)
[2025-03-08 10:36] LABS: Amphetamine/Methamp Scrn,U Negative (Negative); Barbiturate Screen,Urine Negative (Negative); Benzodiazepines Screen,Urine Negative (Negative); Benzoylecgonine Screen, Ur Negative (Negative); Fentanyl Screen,Urine Negative (Negative); Opiate Screen,Urine Negative (Negative); THC Screen,Urine Negative (Negative)
[2025-03-08 10:44] LABS: COVID-19 Antigen (In-House) Negative (Negative)
[2025-03-08 11:38] LABS: Basophils % (Auto) 0 % (0-2.5); Eosinophils % (Auto) 1 % (0-10); Hematocrit 30.3 % (36.0-46.0); Hemoglobin 10.6 g/dL (12.0-16.0); Immature Granulocytes % (Auto) 0 % (0-0); Immature Granulocytes Auto 0.02 Thou/mm3 (0.00-0.00); Lymphocytes # (Auto) 1.6 Thou/mm3 (1.0-4.8); Lymphocytes % (Auto) 27 % (10-50); Mean Corpuscular Volume 83 fL (80-100); Monocytes # (Auto) 0.4 Thou/mm3 (0.0-0.8); Monocytes % (Auto) 6 % (0-12); Neutrophils % (Auto) 66 % (37-80); Nucleated Red Blood Cell % 0 /100 WBC (0); Platelet Count 255 Thou/mm3 (140-440); RDW Standard Deviation 40.4 fL (36.4-46.3); Red Blood Count 3.66 Miln/mm3 (4.00-5.20)
--- NOTE | 2025-03-08 11:44 | PD.EDABDPN ---
ED Abdominal Pain RME/HPI General Chief Complaint: Abdominal Pain Stated complaint: Nausea, syncope, can't sleep, abd. pain Time seen by provider: 03/08/25 09:47 Arrival date/time: 03/08/25 09:21 RME / HPI RME / HPI narrative: 74-year-old female with past medical history of diabetes, hypothyroid, hypertension presents for evaluation of abdominal pain x 2 weeks. She endorses weakness, anorexia, near syncope, nausea, and vomiting. She endorses intermittent chest pain radiating down her left arm. Also complaining of not sleeping well during the night. Patient was recently in a short-term rehab facility after dislocating her right knee. Patient has known right sided rib fractures after a fall at home. Patient denies any vomiting. Denies any fever denies any cough denies any other complaints no medications taken prior to arrival. Related Data Home Medications ?Medication ?Instructions ?Recorded ?Confirmed levothyroxine 75 mcg tablet 75 mcg PO QDAY 04/20/18 12/27/24 acetaminophen 500 mg tablet 500 mg PO Q8HR PRN Pain 01/11/23 12/27/24 alprazolam 0.5 mg tablet 0.5 mg PO HS 01/11/23 12/27/24 atorvastatin 20 mg tablet 20 mg PO DAILY 01/11/23 12/27/24 furosemide 20 mg tablet 20 mg PO DAILY 01/11/23 12/27/24 metformin 500 mg tablet 500 mg PO DAILY 01/11/23 12/27/24 omeprazole 20 mg capsule,delayed 20 mg PO DAILY 01/11/23 12/27/24 release Previous Rx's ?Medication ?Instructions ?Recorded lidocaine 5 % topical patch 2 patch topical QDAY PRN pain #30 11/16/24 (Lidoderm) ea hydrocodone 5 mg-acetaminophen 325 1 tab PO Q4HR PRN Pain Scale 7-10 12/28/24 mg tablet (Severe #5 tabs ferrous sulfate 325 mg (65 mg 325 mg PO BID #60 tabs 03/08/25 iron) tablet melatonin 5 mg capsule 5 mg PO HSPRN PRN insomnia #30 caps 03/08/25 Allergies Allergy/AdvReac Type Severity Reaction Status Date / Time No Known Allergies Allergy Verified 03/08/25 09:32 Review of Systems Review of Systems Narrative Review of Systems: Review of system reviewed and within normal limits except mentioned in HPI ED Exam Narrative Physical exam: VITAL SIGNS: Reviewed. GENERAL APPEARANCE: Alert and interactive, follows commands, no acute distress, HEAD AND FACE: Non-traumatic. ENT: PERRL, pink conjunctivitis, eyelid no trauma, Mucous membrane moist. NECK: Supple, nontender, no nuchal rigidity. CHEST: No tenderness, no crepitus, no paradoxical movement, no retractions. LUNGS: Clear, well ventilated, symmetric, no rales, no wheezing, no ronchi, no stridor, good breath sounds bilaterally. HEART: Regular rate, regular rhythm, no murmur, no gallops. ABDOMEN: Soft, positive bowel sounds, nondistended, no guarding, nontender, no rebound, no masses, RECTAL: Deferred. GENITAL: Deferred. NEUROLOGICAL: Gross motor function intact sensory function intact, Appropriate for age. MUSCULOSKELETAL: low back nontender, full range of motion. EXTREMITIES: Right knee with knee wrapped, limitation range of motion. Nontender SKIN: Color pink, dry, no rash, no lacerations, no abrasions, no contusions. LYMPHATICS: Deferred. Course Quality Measures none Orders Category Date Time Status Bedside Influenza A&B Antigen Test NOW Care 03/08/25 10:03 Completed EKG (ED ONLY) *Do not use* NOW Care 03/08/25 10:[address] abdomen pelvis wo con Stat Exams 03/08/25 10:02 Completed EKG (ED Only) Stat Exams 03/08/25 10:02 Ordered XR chest 2V Stat Exams 03/08/25 10:02 Completed B-Type Natriuretic Peptide Stat Lab 03/08/25 11:30 Completed CBC Stat Lab 03/08/25 11:30 Completed COVID-19 Antigen (In-House) Stat Lab 03/08/25 10:16 Completed Comprehensive Metabolic Panel Stat Lab 03/08/25 11:30 Completed Drug Screen,Urine Stat Lab 03/08/25 09:45 Completed LDH (Lactate Dehydrogenase) Stat Lab 03/08/25 11:30 Completed Lipase Stat Lab 03/08/25 11:30 Completed Magnesium Stat Lab 03/08/25 11:30 Completed Partial Thromboplastin Time Stat Lab 03/08/25 11:30 Completed Prothrombin Time with INR Stat Lab 03/08/25 11:30 Completed Troponin I Stat Lab 03/08/25 11:30 Completed Urinalysis Stat Lab 03/08/25 09:45 Completed Ibuprofen Tab [Motrin Tab] Med 03/08/25 12:01 Discontinued 800 mg PO X1 ONE Pantoprazole [Protonix] Med 03/08/25 12:01 Discontinued 40 mg PO X1 ONE Sodium Chloride 0.9% 1000 ml [Ns] 1,000 ml Med 03/08/25 11:43 Discontinued IV 999 mls/hr Vital Signs Vital signs: Vital Signs Temperature 98.9 F 03/08/25 09:52 Pulse Rate 83 03/08/25 09:52 Respiratory Rate 18 03/08/25 09:52 Blood Pressure 125/76 03/08/25 09:52 Pulse Oximetry (%) 99 03/08/25 09:52 Oxygen Delivery Method Room Air 03/08/25 09:52 Abdominal Pain MDM MDM Narrative MDM Narrative:: 74-year-old female with past medical history of diabetes, hypothyroid, hypertension presents for evaluation of abdominal pain x 2 weeks. She endorses weakness, anorexia, near syncope, nausea, and vomiting. She endorses intermittent chest pain radiating down her left arm. Also complaining of not sleeping well during the night. Patient was recently in a short-term rehab facility after dislocating her right knee. Patient has known right sided rib fractures after a fall at home. Patient denies any vomiting. Denies any fever denies any cough denies any other complaints no medications taken prior to arrival. Patient's workup today all came back unremarkable including CT scan of the abdomen and pelvis. Results discussed with the patient. Patient was given IV fluids with significant improvement of symptoms Patient data External records reviewed:: None Clinical information provided by:: patient and family Social determinants that could affect healthcare access:: none Patient has the following chronic illnesses:: Hypothyroidism diabetes mellitus How is presenting disease/condition affected by chronic disease/condition?: exacerbated by Evaluation data The following diagnostics were reviewed and interpreted by me:: lab results and radiology exam(s) Lab and/or radiology exams considered but not ordered:: None Interpretation Summary: See results [facility] Medications / Prescriptions Medications or Prescriptions considered but not ordered:: None Medication administrations:: Medication Administration History Discontinued Medications Sodium Chloride (Ns) 1,000 mls @ 999 mls/hr IV .Q1H1M ONE Stop: 03/08/25 12:43 Last Infusion: 03/08/25 12:56 Dose: Infused Documented By: Admin: 03/08/25 11:45 Dose: 999 mls/hr Documented By: ELIUD Ibuprofen (Ibuprofen Tab 400 Mg Tablet) 800 mg PO X1 ONE Stop: 03/08/25 12:02 Last Admin: 03/08/25 12:14 Dose: 800 mg Documented By: ELIUD Pantoprazole Sodium (Pantoprazole 40 Mg Tablet) 40 mg PO X1 ONE Stop: 03/08/25 12:02 Last Admin: 03/08/25 12:14 Dose: 40 mg Documented By: ELIUD IV fluids, Motrin and Protonix Consultations Consultation(s) initiated? (list below): No Diagnosis Differential diagnosis abdominal pain: abdominal pain and other (Insomnia) Most likely diagnosis given after review of the tests above:: Insomnia, abdominal pain Admission Indicated Admission indicated?: not indicated Admission Request Was there a request for admission?: No Disposition Plan Disposition Plan: Discharge Discharge Attestation Discharge Attestation: The patient and all family members were given an opportunity to ask questions and understood the discharge instructions. Discharge instructions specifically effects, indications for sooner follow up or return to the emergency department, and the expected course of current diagnosis. Patient condition: Stable Discharge Plan Plan Patient Disposition: HOME (Self Care) Discharge Disposition comment: Stable Prescriptions/Referrals Prescriptions/Med Rec: New melatonin 5 mg capsule 5 mg PO HSPRN PRN (Reason: insomnia) Qty: 30 0RF ferrous sulfate 325 mg (65 mg iron) tablet 325 mg PO BID Qty: 60 0RF No Action levothyroxine 75 mcg Tablet 75 mcg PO QDAY lidocaine [Lidoderm] 5 % adhesive patch,medicated 2 patch topical QDAY PRN (Reason: pain) Qty: 30 0RF Rx Instructions: leave on most painful area for up to 12 hrs hydrocodone-acetaminophen 5-325 mg Tablet 1 tab PO Q4HR MDD 3 max PRN (Reason: Pain Scale 7-10 (Severe) Qty: 5 0RF metformin 500 mg tablet 500 mg PO DAILY Patient Comments: TAKE ONE TABLET poi EVERY DAY atorvastatin 20 mg tablet 20 mg PO DAILY acetaminophen 500 mg tablet 500 mg PO Q8HR PRN (Reason: Pain) Patient Comments: TAKE ONE TABLET BY MOUTH EVERY 8-12 HOURS NEEDED NO MORE THAN EIGHT TABLETS PER 24hrs alprazolam 0.5 mg tablet 0.5 mg PO HS omeprazole 20 mg capsule,delayed release(DR/EC) 20 mg PO DAILY furosemide 20 mg tablet 20 mg PO DAILY Referrals: Michael Louis [Primary Care Provider] - In 1 week Problem List Clinical Impression: Insomnia, Abdominal pain, Anemia Patient/Caregiver Discharge Instructions Discharge Activity: activity as tolerated Education Materials: Abdominal Pain, ED Insomnia Additional Instructions: Thank you for the opportunity for serving you today. You are stable for discharged . You are advised to: Follow-up with your PCP in 1 to 2 days Return to ED for worsening of symptoms Increase oral fluids Take medication as prescribed Print Language: Togolese Stand Alone Forms: Laura Award Info., Patient Portal Info Letter PA/NEUROLOGY MANAGER Supervising Physician PA/NEUROLOGY MANAGER Supervising Physician: MD Giovanna
[2025-03-08] MEDS: SODIUM CHLORIDE 0.9% 1000 ML 1,000 ML 999 ML IV (11:45)
[2025-03-08 11:53] LABS: Partial Thromboplastin Time 26.7 Seconds (22.0-36.0); Prothrombin Time 10.9 Seconds (9.0-12.2)
[2025-03-08 11:55] LABS: B-Type Natriuretic Peptide 65 pg/mL (0-100)
[2025-03-08 12:08] LABS: Alanine Aminotransferase 8 U/L (10-49); Albumin, Serum 4.6 gm/dL (3.4-4.8); Albumin/Globulin Ratio 1.8 (1.2-2.2); Alkaline Phosphatase 81 U/L (46-116); Anion Gap 9 (7-16); Aspartate Amino Transferase 15 U/L (0-34); BUN/Creatinine Ratio 16 Ratio (12-20); Bilirubin,Total 0.6 mg/dL (0.3-1.2); Blood Urea Nitrogen 8 mg/dL (9-23); Calcium 9.5 mg/dL (8.3-10.6); Calcium (Corrected) 9.5 mg/dL (8.5-10.1); Carbon Dioxide 25.6 mMol/L (20.0-31.0); Chloride 103 mMol/L (98-107); Creatinine (Component) 0.5 mg/dL (0.6-1.3); Estimated Creatinine Clearance 84.1 mL/min (>60); Globulin 2.6 gm/dL (2.3-3.5); Glucose 107 mg/dL (74-106); LDH (Lactate Dehydrogenase) 157 U/L (120-246); Lipase 29 U/L (12-53); Osmolality,Calculated 273 (275-295); Potassium 3.6 mMol/L (3.4-5.1); Sodium 138 mMol/L (136-145); Total Protein 7.2 gm/dL (5.7-8.2); Troponin I < 0.020 ng/mL (0.0-0.045); eGFR > 60 See Note
[2025-03-08] MEDS: PANTOPRAZOLE 40 MG TABLET PO (12:14)
[2025-03-08] MEDS: IBUPROFEN TAB 400 MG TABLET 800 MG PO (12:14)
[2025-03-08 13:30] VITALS: PULSE 77; RESP 18; O2SAT 100
== END 2025-03-08 13:30 | disposition home or self-care (01) ==
PROVIDERS: Physician Assistant; Emergency Provider Emergency Medicine; PCP Physician Assistant
DX: G47.00 Insomnia, unspecified (principal); R10.9 Unspecified abdominal pain; R07.9 Chest pain, unspecified; D64.9 Anemia, unspecified; N20.0 Calculus of kidney; N28.89 Other specified disorders of kidney and ureter; M80.08XA Age-related osteoporosis with current pathological fracture, vertebra(e), initial encounter for fracture
CPT/HCPCS: 36415; 71046; 74176; 80053; 80307; 81001; 83615; 83690; 83735; 83880; 84484; 85025; 85610; 85730; 87400; 87811; 93005; 96360; 99284; J7030; A9270

== ENCOUNTER → 2025-04-04 | Outpatient (CLI) | payer MEDICARE, SELFPAY ==
--- NOTE | 2025-04-04 16:30 | XR_ITS ---
Exam: MRI knee without contrast, right Date and time of exam: April 04, 2025 1622 hours INDICATIONS: Patient fell December 26, 2024 with injury to the knee, knee pain Technique: Multiple axial, coronal, and sagittal sections on the knee have been obtained. T2-Weighted sagittal, fat-suppressed images, TR 3,500, TE 62, T2 weighted coronal fat-saturated images, TR 3,500, TE 62 Proton density sagittal sections, TR 1800, TE 31. T-1 weighted coronal images, TR 524, TE 13.0 Findings: Medial meniscus anterior horn is intact. Medial meniscus, body suspicious for horizontal linear tear. Posterior horn medial meniscus large horizontal linear tear which appears to communicate with the inner margin sagittal image 4. Lateral meniscus anterior horn intrasubstance degeneration Lateral meniscus, body is intact Posterior horn lateral meniscus is intact Anterior cruciate ligament moderately attenuated Posterior cruciate ligament appears intact. Knee effusion is complex. Quadriceps and patellar tendons appear intact. There is no evidence of tendinosis. Inflammatory change or fracture of Hoffa's fat pad is not seen. Medial patellar facet demonstrates severe thinning. Lateral patellar facet cartilage demonstrates severe thinning. Trochlear cartilage demonstrates severe thinning. Marrow signal increase in the patella with fracture line traversing the mid patella anterior to posterior without displacement Marrow edema in both femoral condyles as well as proximal mediolateral tibia. Medial collateral ligament appears intact. Meniscocapsular separation bodies medial meniscus coronal image 14 Illiotibial band and fibular collateral ligament are intact. Biceps femoris tendons appear intact. Medial femoral condylar articular cartilage demonstrates mild thinning. Lateral femoral condylar articular cartilage demonstratesmild thinning. Tibial plateau cartilage demonstrates mild thinning. Impression: Fracture through the midportion of the patella without significant displacement Horizontal linear tears body and posterior horn medial meniscus Moderately attenuated anterior cruciate ligament Significant marrow edema in the femoral condyles and proximal tibia, clinical correlation advised
== END | disposition home or self-care (01) ==
LOC: SMRI 15:48
PROVIDERS: PCP Physician Assistant; Referring Provider Orthopaedic Surgery; Visit Provider Orthopaedic Surgery
DX: S82.091A Other fracture of right patella, initial encounter for closed fracture (principal); S83.241A Other tear of medial meniscus, current injury, right knee, initial encounter; W19.XXXA Unspecified fall, initial encounter; M25.861 Other specified joint disorders, right knee; M25.461 Effusion, right knee
CPT/HCPCS: 73721

== ENCOUNTER 2025-05-22 14:03 | Outpatient (AMB) | payer MEDICARE, SELFPAY ==
[2025-05-22 14:31] VITALS: BP 132/73; PULSE 87; RESP 20; TEMP 36.6; O2SAT 97; BMI 24.6
--- NOTE | 2025-05-22 14:31 | PD.ORTHCLVIS ---
Vital signs 05/22/25 14:31 Height 1.52 m Height Method Measured Weight 57.238 kg Weight Measurement Method Standing Scale BMI 24.6 BP 132/73 H Blood Pressure Source Automatic Cuff Blood Pressure Location Left Upper Arm Position Sitting Respiration 20 Pulse 87 Pulse Source Monitor Temp 98 F Temp Source Temporal Artery Scan Pulse Oximetry (%) 97 Oxygen Delivery Method Room Air Med/Allergies Allergies & Medications Allergies No Known Allergies Allergy (Verified 05/22/25 14:32) Medication Reconciliation levothyroxine 75 mcg tablet 75 mcg PO QDAY 04/20/18 [History Confirmed 05/22/25] acetaminophen 500 mg tablet 500 mg PO Q8HR PRN Pain 01/11/23 [History Confirmed 05/22/25] alprazolam 0.5 mg tablet 0.5 mg PO HS 01/11/23 [History Confirmed 05/22/25] atorvastatin 20 mg tablet 20 mg PO DAILY 01/11/23 [History Confirmed 05/22/25] furosemide 20 mg tablet 20 mg PO DAILY 01/11/23 [History Confirmed 05/22/25] metformin 500 mg tablet 500 mg PO DAILY 01/11/23 [History Confirmed 05/22/25] omeprazole 20 mg capsule,delayed release 20 mg PO DAILY 01/11/23 [History Confirmed 05/22/25] lidocaine 5 % topical patch (Lidoderm) 2 patch topical QDAY PRN pain #30 ea 11/16/24 [Rx Confirmed 05/22/25] hydrocodone 5 mg-acetaminophen 325 mg tablet 1 tab PO Q4HR PRN Pain Scale 7-10 (Severe #5 tabs 12/28/24 [Rx Confirmed 05/22/25] ferrous sulfate 325 mg (65 mg iron) tablet 325 mg PO BID #60 tabs 03/08/25 [Rx Confirmed 05/22/25] melatonin 5 mg capsule 5 mg PO HSPRN PRN insomnia #30 caps 03/08/25 [Rx Confirmed 05/22/25] Exam Exam Breathing is nonlabored. Patient has a normal mood and affect. Bilateral extremities were evaluated and demonstrates sensation intact to light touch. Palpable pedal pulses are present. No significant edema is present. Bilateral hips were examined. The patient has no pain with log roll of the hips. Internal rotation to 30 degrees and external rotation to 30 degrees is painless. Negative FADIR. Left knee was examined today. The left knee is in reasonable alignment. Range of motion from 0-120 degrees. Knee is stable to varus and valgus as well as AP translation with <5mm. Patient has a negative McMurrays. There is no pain with patellofemoral compression and no crepitus noted. The knee is nontender to palpation. The right knee was also examined. The right knee is in varus alignment. Range of motion from 0-115 degrees. Knee is stable to varus and valgus as well as AP translation with <5mm. Patient has a negative McMurrays. There is no pain with patellofemoral compression and no crepitus noted. The knee is tender to palpation medially. Patient has no recent weightbearing x-rays Assessment and Plan Problem List (1) Closed fracture of right patella: Status: Acute Plan: Patient is a 74-year-old female with a prior transverse patella fracture with no recent x-rays. I will get new x-rays. She also states significant arthritis. In addition, she reports significant radicular symptoms from her spine. She has numbness and tingling that goes all way down her leg. She has multifactorial etiology for her pain we will start with weightbearing x-rays. We will likely do cortisone injections for visit. (2) Arthritis of right knee: Status: Acute Advanced Care Planning Discussion Advance care planning discussed with:: patient Office Procedures GNS Level of Care Nursing/Assessment Patient Status: Initial/New Patient Nursing Assessment/Reassesment: Medication Reconciliation, Orthostatic Vitals, Update PMH in EMR and Vital Signs Coordination of Care: Complex Care and Chronic Disease 1-5, Education Complex Pt/Fam, Consent,records obtained, informed consent, Lab and Imaging orders, Results/Orders obtained and Staff clarify orders Special Needs: Language special needs New Patient Charge New Patient Point Assignment: [id number] New Patient Point Charge: OPTICAL STORE MANAGER Level 4 ([id number]) MA Intake Visit Data Collection New Patient or Established: New Patient (never been to [facility]) Reason for Visit:: RIGHT KNEE PAIN Seen by Clinical Staff ONLY (RN/MA): No Spoilage Worker Required: Yes PCP or OBGYN visit in last 3 months: Yes Hx Now: No Do You Feel Safe at Home: Yes Authorities Contacted: N/A Questionairres Past Medical History Past Medical History Have you ever been diagnosed with any of the following: Neurological Problems Seizures: No Head Trauma: Yes Cardiology Problems Hypercholesterolemia: Yes Congestive Heart Failure: No Hypertension: Yes Respiratory Problems Chronic Obstructive Pulmonary Disease (COPD): No Asthma: Yes Stomache/Intestinal Problems Gastroesophageal Reflux Disease: Yes Genital/Urinary Problems Renal Disease: No Reproductive Problems Previous Pregnancies: Yes Musculoskeletal Problems Arthritis: Yes Degenerative Disk Disease: Yes Endocrine Problems Diabetes Mellitus Type 1: No Diabetes Mellitus Type 2: Yes Hypothyroidism: Yes Blood Problems Sickle Cell Disease: No Other Problems Hospitalization: No Down Syndrome: No Developmental Delay: No Shingles: No Falls: No Blood Transfusions: No Anesthesia Reactions: No Cancer: No Subjective Visit Visit for: new patient and knee Immunization / Flu Flu Vaccine in the Last 12 Months: Yes Flu Vaccine Exclusion Criteria: Already Received History of Present Illness Chief complaint: RIGHT KNEE PAIN Date of injury / onset of symptoms: DECEMBER 26, 2024 Patient is a 75-year-old female with right knee pain. She had a fall and a patella fracture that was treated nonoperatively in a brace. She sees another surgeon. She continues to have pain that starts in her buttocks and radiates all the way down her leg. Associated numbness and tingling. In addition, she reports significant pain in the knee. She has arthritis but no weightbearing x-rays. She has never had any injections Personal History Occupation: RETIRED Red flag PMH: none BMI Counceling provided: Yes Pain Pain level (0-10): 7 Pain location: inside (medial), outside (lateral) and anterior Pain quality: sharp and other (specify) (SWELLING) Associated signs & symptoms: stiffness Ambulatory data Ambulatory device: walker Walking distance (minutes): 2 Treatments Number of previous injections: 0 Number of Physical Therapy sessions: 0 Improvement with PT: No Improvement with NSAIDS: no Review of Systems Review of Systems: All systems negative unless otherwise noted in HPI.
--- NOTE | 2025-05-22 14:39 | XR_ITS ---
Examination: Bilateral AP knees single view Right knee PA, lateral, axial 3 views TECHNIQUE: Bilateral AP knees standing single view Right knee PA flexion standing single view, lateral standing single view, axial single view total 4 views Date and time: May 22, 2025 1511 hours, comparison February 12, 2025 INDICATIONS: Right knee pain after falling and fracture December 26, 2024 FINDINGS: Severe osteopenia Moderate to severe right knee tricompartment osteoarthritis, severe narrowing patellofemoral joint No acute fracture Moderate narrowing and osteoarthritis medial lateral joint spaces left knee IMPRESSION: Moderate to severe right knee tricompartment osteoarthritis, severe narrowing patellofemoral joint
== END 2025-05-22 14:52 | disposition home or self-care (01) ==
PROVIDERS: PCP Physician Assistant; Referring Provider Physician Assistant; Supervising Provider Orthopaedic Surgery Adult Reconstructive Orthopaedic Surgery; Visit Provider Orthopaedic Surgery Adult Reconstructive Orthopaedic Surgery
DX: S82.031D Displaced transverse fracture of right patella, subsequent encounter for closed fracture with routine healing (principal); W19.XXXD Unspecified fall, subsequent encounter; E11.9 Type 2 diabetes mellitus without complications; E03.9 Hypothyroidism, unspecified; I10 Essential (primary) hypertension; E78.00 Pure hypercholesterolemia, unspecified; K21.9 Gastro-esophageal reflux disease without esophagitis; M25.561 Pain in right knee; R20.0 Anesthesia of skin; R20.2 Paresthesia of skin; M17.11 Unilateral primary osteoarthritis, right knee
CPT/HCPCS: 73564; 99204; G0463

== ENCOUNTER 2025-07-10 14:19 | Outpatient (AMB) | payer MEDICARE, SELFPAY ==
[2025-07-10 14:35] VITALS: BP 151/75; PULSE 82; RESP 19; TEMP 36.7; O2SAT 99; BMI 25.2
--- NOTE | 2025-07-10 14:35 | ORTHONT_ITS ---
Vital signs 07/10/25 14:35 Height 1.52 m Height Method Stated Weight 58.287 kg Weight Measurement Method Standing Scale BMI 25.2 BP 151/75 H Blood Pressure Source Automatic Cuff Blood Pressure Location Left Upper Arm Position Sitting Respiration 19 Pulse 82 Pulse Source Monitor Temp 98.1 F Temp Source Temporal Artery Scan Pulse Oximetry (%) 99 Oxygen Delivery Method Room Air Med/Allergies Allergies & Medications Allergies No Known Allergies Allergy (Verified 07/10/25 14:36) Medication Reconciliation levothyroxine 75 mcg tablet 75 mcg PO QDAY 04/20/18 [History Confirmed 07/10/25] acetaminophen 500 mg tablet 500 mg PO Q8HR PRN Pain 01/11/23 [History Confirmed 07/10/25] alprazolam 0.5 mg tablet 0.5 mg PO HS 01/11/23 [History Confirmed 07/10/25] atorvastatin 20 mg tablet 20 mg PO DAILY 01/11/23 [History Confirmed 07/10/25] furosemide 20 mg tablet 20 mg PO DAILY 01/11/23 [History Confirmed 07/10/25] metformin 500 mg tablet 500 mg PO DAILY 01/11/23 [History Confirmed 07/10/25] omeprazole 20 mg capsule,delayed release 20 mg PO DAILY 01/11/23 [History Confirmed 07/10/25] lidocaine 5 % topical patch (Lidoderm) 2 patch topical QDAY PRN pain #30 ea 11/16/24 [Rx Confirmed 07/10/25] hydrocodone 5 mg-acetaminophen 325 mg tablet 1 tab PO Q4HR PRN Pain Scale 7-10 (Severe #5 tabs 12/28/24 [Rx Confirmed 07/10/25] ferrous sulfate 325 mg (65 mg iron) tablet 325 mg PO BID #60 tabs 03/08/25 [Rx Confirmed 07/10/25] melatonin 5 mg capsule 5 mg PO HSPRN PRN insomnia #30 caps 03/08/25 [Rx Confirmed 07/10/25] Exam Exam Breathing is nonlabored. Patient has a normal mood and affect. Bilateral extremities were evaluated and demonstrates sensation intact to light touch. Palpable pedal pulses are present. No significant edema is present. Bilateral hips were examined. The patient has no pain with log roll of the hips. Internal rotation to 30 degrees and external rotation to 30 degrees is painless. Negative FADIR. Left knee was examined today. The left knee is in reasonable alignment. Range of motion from 0-120 degrees. Knee is stable to varus and valgus as well as AP translation with <5mm. Patient has a negative McMurrays. There is no pain with patellofemoral compression and no crepitus noted. The knee is nontender to palpation. The right knee was also examined. The right knee is in varus alignment. Range of motion from 0-115 degrees. Knee is stable to varus and valgus as well as AP translation with <5mm. Patient has a negative McMurrays. There is no pain with patellofemoral compression and no crepitus noted. The knee is tender to palpation medially. Straight leg raise is intact X-rays demonstrate no acute fracture when I see. She does have osteopenia of the right knee Assessment and Plan Problem List (1) Closed fracture of right patella: Status: Acute Plan: Patient is a 72-year-old female with a patella fracture 6 months ago. She should start outpatient physical therapy. I cannot see the fracture line on x- ray. The prior surgeon was concerned about a nonunion but this was an MRI only 2 months from the injury. I will order a CT scan as the family is very concerned. Will likely do a cortisone injection as well at the next visit (2) Arthritis of right knee: Status: Acute Advanced Care Planning Discussion Advance care planning discussed with:: patient Office Procedures GNS Level of Care Nursing/Assessment Patient Status: Established Patient Nursing Assessment/Reassesment: Medication Reconciliation, Update PMH in EMR and Vital Signs Coordination of Care: Complex Care and Chronic Disease 1-5, Education Complex Pt/Fam, Consent,records obtained, informed consent, Results/Orders obtained and Staff clarify orders Special Needs: Language special needs Established Patient Charge Established Patient Point Assignment: 95 Established Patient Point Charge: EP Level 3 (80-115) MA Intake Visit Data Collection New Patient or Established: Established Patient (seen at [facility] within 3 years) Reason for Visit:: RIGHT KNEE PAIN XRAY RESULTS Seen by Clinical Staff ONLY (RN/MA): No Assembly Machine Operator Required: Yes PCP or OBGYN visit in last 3 months: Yes Hx Now: No Do You Feel Safe at Home: Yes Authorities Contacted: N/A Questionairres Past Medical History Past Medical History Have you ever been diagnosed with any of the following: Neurological Problems Cerebrovascular Accident (CVA): No Transient Ischemic Attacks (TIA): No Dementia: No Alzheimer's Disease: No Parkinson's Disease: No Brain Tumor: No Meningitis: No Seizures: No Epilepsy: No Multiple Sclerosis: No Cerebral Palsy: No Amyotrophic Lateral Sclerosis (ALS/Renetta Gehrig's): No Guillain-[place] Syndrome: No Spina Bifida: No Paralysis: No Peripheral Neuropathy: No Watkins's Palsy: No Subdural Hematoma: No Migraine: No Head Trauma: Yes Spinal Cord Injury: No Traumatic Brain Injury: No Cardiology Problems Myocardial Infarction: No Cardiac Arrhythmia: No Atrial Fibrillation: No Angina: No Heart Murmur: No Coronary Artery Disease: No Atherosclerotic Heart Disease: No Peripheral Vascular Disease: No Hypercholesterolemia: Yes Aneurysm: No Congestive Heart Failure: No Congenital Heart Disease: No Valvular Heart Disease: No Rheumatic Fever: No Cardiomyopathy: No Edema: No Pericarditis: No Cellulitis: No Deep Vein Thrombosis: No Hypertension: Yes Hypotension: No Varicose Veins: No Respiratory Problems Chronic Obstructive Pulmonary Disease (COPD): No Asthma: Yes Bronchitis: No Emphysema: No Pneumonia: No Pulmonary Fibrosis: No Tuberculosis: No Pulmonary Embolism: No Pulmonary Edema: No Sleep Apnea: No CPAP Dependent: No Respiratory Aspiration: No Dyspnea: No Orthopnea: No Hx Cough: No Cough: No Wheezing: No Chest Deformities: No Smoking: No Smoking Cessation Counseling: No Smoking Exposure: No Tobacco Use: No Clubbing: No Exposure to Respiratory Irritants: No Intubation: No Stomache/Intestinal Problems Liver Cancer: No Hepatitis: No Cirrhosis: No Pancreatic Cancer: No Pancreatitis: No Celiac Disease: No Gall Bladder Disease: No Gastrointestinal Bleed: No Esophageal Varices: No Escobar's Esophagus: No Colitis: No Ulcerative Colitis: No Diverticulitis: No Diverticulosis: No Ulcer: No Colorectal Cancer: No Irritable Bowel: No Crohn's Disease: No Obstructive Bowel: No Hiatal Hernia: No Hemorrhoids: No Gastroesophageal Reflux Disease: Yes Polyps: No Obesity: No Genital/Urinary Problems Chronic Kidney Disease: No Renal Disease: No Kidney Stones: No Polycystic Kidney Disease: No Neurogenic Bladder: No Inguinal Hernia: No Dialysis: No Reproductive Problems Previous Pregnancies: Yes Musculoskeletal Problems Arthritis: Yes Degenerative Disk Disease: Yes Endocrine Problems Diabetes Mellitus Type 1: No Diabetes Mellitus Type 2: Yes Hypothyroidism: Yes Blood Problems Sickle Cell Disease: No Other Problems Hospitalization: No Autoimmune Disease: No Down Syndrome: No Autism: No Developmental Delay: No Shingles: No Falls: No Blood Transfusions: No Anesthesia Reactions: No Cancer: No Surgical History Angioplasty: No Appendectomy: No Bariatric Surgery: No Breast Surgery: No Cancer Surgery: No Carotid Endarterectomy: No Cholecystectomy: No Colectomy: No Colostomy: No Coronary Artery Bypass Graft: No Valve Replacement: No Herniorrhaphy: No Total Hip Replacement: No Total Knee Replacement: No Hysterectomy: No Pacemaker: No Sinus Surgery: No Splenectomy: No TAHBSO-Total Abdominal Hysterectomy: No Thyroidectomy: No Ureter Stent: No Subjective Visit Visit for: follow up visit, knee and x-rays Immunization / Flu Flu Vaccine in the Last 12 Months: Yes Flu Vaccine Exclusion Criteria: Already Received History of Present Illness Chief complaint: RIGHT KNEE PAIN Date of injury / onset of symptoms: DECEMBER 26, 2024 Patient is a 75-year-old female with right knee pain. She had a fall and a patella fracture that was treated nonoperatively in a brace in December. She sees another surgeon. She continues to have pain that starts in her buttocks and radiates all the way down her leg. Associated numbness and tingling. In addition, she reports significant pain in the knee. She had a recent w eightbearing x-rays that shows no patella fracture Personal History Occupation: RETIRED Red flag PMH: none BMI Counceling provided: Yes Pain Pain level (0-10): 7 Pain location: inside (medial), outside (lateral) and anterior Pain quality: sharp and other (specify) (SWELLING) Associated signs & symptoms: stiffness Ambulatory data Ambulatory device: walker Walking distance (minutes): 2 Treatments Number of previous injections: 0 Number of Physical Therapy sessions: 0 Improvement with PT: No Improvement with NSAIDS: no Review of Systems Review of Systems: All systems negative unless otherwise noted in HPI.
== END 2025-07-10 14:46 | disposition home or self-care (01) ==
LOC: HODSRG 14:19
PROVIDERS: PCP Physician Assistant; Referring Provider Physician Assistant; Supervising Provider Orthopaedic Surgery Adult Reconstructive Orthopaedic Surgery; Visit Provider Orthopaedic Surgery Adult Reconstructive Orthopaedic Surgery
DX: M25.561 Pain in right knee (principal); M17.11 Unilateral primary osteoarthritis, right knee; I10 Essential (primary) hypertension; E11.9 Type 2 diabetes mellitus without complications; Z79.84 Long term (current) use of oral hypoglycemic drugs
CPT/HCPCS: 99213; G0463

== ENCOUNTER 2025-08-03 13:05 | Outpatient (AMB) | payer MEDICARE, SELFPAY ==
--- NOTE | 2025-08-03 13:07 | ORTHONT_ITS ---
Vital signs 08/03/25 13:17 Height 1.52 m Height Method Measured Weight 59.165 kg Weight Measurement Method Standing Scale BMI 25.6 BP 145/80 H Blood Pressure Source Automatic Cuff Blood Pressure Location Left Upper Arm Position Sitting Respiration 18 Pulse 84 Pulse Source Monitor Temp 98.0 F Temp Source Temporal Artery Scan Pulse Oximetry (%) 98 Oxygen Delivery Method Room Air Med/Allergies Allergies & Medications Allergies No Known Allergies Allergy (Verified 08/03/25 13:18) Medication Reconciliation levothyroxine 75 mcg tablet 75 mcg PO QDAY 04/20/18 [History Confirmed 08/03/25] acetaminophen 500 mg tablet 500 mg PO Q8HR PRN Pain 01/11/23 [History Confirmed 08/03/25] alprazolam 0.5 mg tablet 0.5 mg PO HS 01/11/23 [History Confirmed 08/03/25] atorvastatin 20 mg tablet 20 mg PO DAILY 01/11/23 [History Confirmed 08/03/25] furosemide 20 mg tablet 20 mg PO DAILY 01/11/23 [History Confirmed 08/03/25] metformin 500 mg tablet 500 mg PO DAILY 01/11/23 [History Confirmed 08/03/25] omeprazole 20 mg capsule,delayed release 20 mg PO DAILY 01/11/23 [History Confirmed 08/03/25] lidocaine 5 % topical patch (Lidoderm) 2 patch topical QDAY PRN pain #30 ea 11/16/24 [Rx Confirmed 08/03/25] hydrocodone 5 mg-acetaminophen 325 mg tablet 1 tab PO Q4HR PRN Pain Scale 7-10 (Severe #5 tabs 12/28/24 [Rx Confirmed 08/03/25] ferrous sulfate 325 mg (65 mg iron) tablet 325 mg PO BID #60 tabs 03/08/25 [Rx Confirmed 08/03/25] melatonin 5 mg capsule 5 mg PO HSPRN PRN insomnia #30 caps 03/08/25 [Rx Confirmed 08/03/25] Exam Exam Breathing is nonlabored. Patient has a normal mood and affect. Bilateral extremities were evaluated and demonstrates sensation intact to light touch. Palpable pedal pulses are present. No significant edema is present. Bilateral hips were examined. The patient has no pain with log roll of the hips. Internal rotation to 30 degrees and external rotation to 30 degrees is painless. Negative FADIR. Left knee was examined today. The left knee is in reasonable alignment. Range of motion from 0-120 degrees. Knee is stable to varus and valgus as well as AP translation with <5mm. Patient has a negative McMurrays. There is no pain with patellofemoral compression and no crepitus noted. The knee is nontender to palpation. The right knee was also examined. The right knee is in varus alignment. Range of motion from 0-115 degrees. Knee is stable to varus and valgus as well as AP translation with <5mm. Patient has a negative McMurrays. There is no pain with patellofemoral compression and no crepitus noted. The knee is tender to palpation medially. Straight leg raise is intact, she is nontender over the patella X-rays demonstrate no acute fracture when I see. She has severe arthritis and a CT shows partial healing of the fracture Assessment and Plan Problem List (1) Closed fracture of right patella: Status: Acute Plan: Patient is a 74-year-old female with a patella fracture 6 months ago. She should start outpatient physical therapy. Recommend knee cortisone injection as patient would like to proceed with conservative treatment at this time. The risks and benefits of the procedure were reviewed with the patient and patient gave verbal consent to continue with the procedure. Procedure: performed by Dr. Mai Using sterile technique the Right knee was thoroughly prepped with alcohol, and approximately 1 cc of Depo-Medrol 80mg/mL and 4 cc of 0.2% ropivacaine was injected without resistance into the medial tibial femoral joint space. The patient tolerated the procedure. (2) Arthritis of right knee: Status: Acute Advanced Care Planning Discussion Advance care planning discussed with:: patient Office Procedures GNS Level of Care Nursing/Assessment Patient Status: Established Patient Nursing Assessment/Reassesment: Medication Reconciliation, Update PMH in EMR and Vital Signs Coordination of Care: Complex Care and Chronic Disease 1-5, Education Complex Pt/Fam, Consent,records obtained, informed consent, Results/Orders obtained and Staff clarify orders Special Needs: Language special needs Established Patient Charge Established Patient Point Assignment: 95 Established Patient Point Charge: EP Level 3 (80-115) Surgical Proc/IM SQ injection Minor Surgical Procedure: Yes (KNEE INJECTION) Medication Given Medication Given Medication Given: Yes Documented Dose Given: 1 Route: Infiitration Medication Given Medication Given Medication Given: Yes Documented Dose Given: 4 Route: Infiitration Office Meds methylprednisolone acetate 80 mg/mL suspension for injection Performing Provider: Andres Mai MD Performing Location: [facility] Administered by: Andres Mai MD on 08/03/25 13:30 Dose Route Admin Location Dispensed Lot Number Expiration Date Pack age [facility] [employer] 80 mg intra-articular KNEE 1 mL [id number] 04/12/27 [address]-6 [id number] [employer] ropivacaine (PF) 2 mg/mL (0.2 %) injection solution Performing Provider: Andres Mai MD [facility] Administered by: Andres Mai MD on 08/03/25 13:30 Dose Route Admin Location Dispensed Lot Number Expiration Date Pack age [facility] [employer] Supervisor 20 mL Infiltration KNEE 20 mL [id number] 10/13/27 95318-934-81 [id number] [facility] Intake Visit Data Collection New Patient or Established: Established Patient (seen at [facility] within 3 years) Reason for Visit:: RIGHT KNEE PAIN XRAY RESULTS Seen by Clinical Staff ONLY (RN/MA): No Cdl Team Truck Driver Required: Yes PCP or OBGYN visit in last 3 months: Yes Hx Now: No Do You Feel Safe at Home: Yes Authorities Contacted: N/A Questionairres Past Medical History Past Medical History Have you ever been diagnosed with any of the following: Neurological Problems Cerebrovascular Accident (CVA): No Transient Ischemic Attacks (TIA): No Dementia: No Alzheimer's Disease: No Parkinson's Disease: No Brain Tumor: No Meningitis: No Seizures: No Epilepsy: No Multiple Sclerosis: No Cerebral Palsy: No Amyotrophic Lateral Sclerosis (ALS/Renetta Gehrig's): No Guillain-[place] Syndrome: No Spina Bifida: No Paralysis: No Peripheral Neuropathy: No Watkins's Palsy: No Subdural Hematoma: No Migraine: No Head Trauma: Yes Spinal Cord Injury: No Traumatic Brain Injury: No Cardiology Problems Myocardial Infarction: No Cardiac Arrhythmia: No Atrial Fibrillation: No Angina: No Heart Murmur: No Coronary Artery Disease: No Atherosclerotic Heart Disease: No Peripheral Vascular Disease: No Hypercholesterolemia: Yes Aneurysm: No Congestive Heart Failure: No Congenital Heart Disease: No Valvular Heart Disease: No Rheumatic Fever: No Cardiomyopathy: No Edema: No Pericarditis: No Cellulitis: No Deep Vein Thrombosis: No Hypertension: Yes Hypotension: No Varicose Veins: No Respiratory Problems Chronic Obstructive Pulmonary Disease (COPD): No Asthma: Yes Bronchitis: No Emphysema: No Pneumonia: No Pulmonary Fibrosis: No Tuberculosis: No Pulmonary Embolism: No Pulmonary Edema: No Sleep Apnea: No CPAP Dependent: No Respiratory Aspiration: No Dyspnea: No Orthopnea: No Hx Cough: No Cough: No Wheezing: No Chest Deformities: No Smoking: No Smoking Cessation Counseling: No Smoking Exposure: No Tobacco Use: No Clubbing: No Exposure to Respiratory Irritants: No Intubation: No Stomache/Intestinal Problems Liver Cancer: No Hepatitis: No Cirrhosis: No Pancreatic Cancer: No Pancreatitis: No Celiac Disease: No Gall Bladder Disease: No Gastrointestinal Bleed: No Esophageal Varices: No Escobar's Esophagus: No Colitis: No Ulcerative Colitis: No Diverticulitis: No Diverticulosis: No Ulcer: No Colorectal Cancer: No Irritable Bowel: No Crohn's Disease: No Obstructive Bowel: No Hiatal Hernia: No Hemorrhoids: No Gastroesophageal Reflux Disease: Yes Polyps: No Obesity: No Genital/Urinary Problems Chronic Kidney Disease: No Renal Disease: No Kidney Stones: No Polycystic Kidney Disease: No Neurogenic Bladder: No Inguinal Hernia: No Dialysis: No Reproductive Problems Previous Pregnancies: Yes Musculoskeletal Problems Arthritis: Yes Degenerative Disk Disease: Yes Endocrine Problems Diabetes Mellitus Type 1: No Diabetes Mellitus Type 2: Yes Hypothyroidism: Yes Blood Problems Sickle Cell Disease: No Other Problems Hospitalization: No Autoimmune Disease: No Down Syndrome: No Autism: No Developmental Delay: No Shingles: No Falls: No Blood Transfusions: No Anesthesia Reactions: No Cancer: No Surgical History Angioplasty: No Appendectomy: No Bariatric Surgery: No Breast Surgery: No Cancer Surgery: No Carotid Endarterectomy: No Cholecystectomy: No Colectomy: No Colostomy: No Coronary Artery Bypass Graft: No Valve Replacement: No Herniorrhaphy: No Total Hip Replacement: No Total Knee Replacement: No Hysterectomy: No Pacemaker: No Sinus Surgery: No Splenectomy: No TAHBSO-Total Abdominal Hysterectomy: No Thyroidectomy: No Ureter Stent: No Subjective Visit Visit for: follow up visit, knee and x-rays Immunization / Flu Flu Vaccine in the Last 12 Months: Yes Flu Vaccine Exclusion Criteria: Already Received History of Present Illness Chief complaint: RIGHT KNEE PAIN Date of injury / onset of symptoms: DECEMBER 26, 2024 Patient is a 75-year-old female with right knee pain. She had a fall and a patella fracture that was treated nonoperatively in a brace in December. She sees another surgeon. She continues to have pain that starts in her buttocks and radiates all the way down her leg. Associated numbness and tingling. In addition, she reports significant pain in the knee. She was nonweight bearing until May. Personal History Occupation: RETIRED Red flag PMH: none BMI Counceling provided: Yes Pain Pain level (0-10): 7 Pain location: inside (medial), outside (lateral) and anterior Pain quality: sharp and other (specify) (SWELLING) Associated signs & symptoms: stiffness Ambulatory data Ambulatory device: walker Walking distance (minutes): 2 Treatments Number of previous injections: 0 Number of Physical Therapy sessions: 0 Improvement with PT: No Improvement with NSAIDS: no Review of Systems Review of Systems: All systems negative unless otherwise noted in HPI.
[2025-08-03 13:17] VITALS: BP 145/80; PULSE 84; RESP 18; TEMP 36.7; O2SAT 98; BMI 25.6
== END 2025-08-03 13:21 | disposition home or self-care (01) ==
LOC: HODSRG 13:05
PROVIDERS: PCP Physician Assistant; Referring Provider Physician Assistant; Supervising Provider Orthopaedic Surgery Adult Reconstructive Orthopaedic Surgery; Visit Provider Orthopaedic Surgery Adult Reconstructive Orthopaedic Surgery
DX: M25.561 Pain in right knee (principal); M17.11 Unilateral primary osteoarthritis, right knee; S82.001D Unspecified fracture of right patella, subsequent encounter for closed fracture with routine healing; W19.XXXD Unspecified fall, subsequent encounter; I10 Essential (primary) hypertension; E11.9 Type 2 diabetes mellitus without complications; Z79.84 Long term (current) use of oral hypoglycemic drugs
CPT/HCPCS: 20610; 99213; J1010; J2795; G0463